=== PATIENT | male | born 1940 | race Caucasian/White ===

== ENCOUNTER 2019-07-25 09:54 | Day surgery (SDC) | payer OTHER ==
[2019-07-25 10:33] VITALS: BMI 33.0
[2019-07-25] MEDS ORDERED: LIDOCAINE HCL/PF 2% SDV 5ML VIAL ONE (11:43)
[2019-07-25 12:42] VITALS: BP 106/75; PULSE 87; TEMP 97.3
--- NOTE | 2019-07-30 16:47 | PATH ---
Surgical Pathology Report Patient Name: HELENA LAI [facility]. Rec. #: [id number] /Age/Gender: 1940 (Age: 79) / M Account: [id number] Location: [facility] Taken: 07/25/2019 Received: 07/25/2019 Reported: 07/30/2019 Physicians: Mell Mary M.D. Specimen(s) Received A: SECOND PORTION DUODENUM B: ANTRUM C: GE JUNCTION Clinical History Abdominal pain Postoperative diagnosis: Gastritis Final Diagnosis A. DUODENUM, SECOND PORTION, BIOPSY: DUODENAL MUCOSA WITHOUT SIGNIFICANT PATHOLOGIC FINDINGS. B. GASTRIC, ANTRUM, BIOPSY: GASTRIC ANTRAL MUCOSA WITH MODERATE CHRONIC GASTRITIS. IMMUNOHISTOCHEMICAL STAIN FOR H. PYLORI IS NEGATIVE. C. GE JUNCTION, BIOPSY: SQUAMOCOLUMNAR MUCOSA WITH MILD CHRONIC INFLAMMATION AND CHANGES OF MILD REFLUX ESOPHAGITIS. NO INTESTINAL METAPLASIA OR DYSPLASIA IDENTIFIED. Electronically Signed Mell Alvarez M.D. Gross Description A. Received in formalin, labeled "biopsy second portion of duodenum" are 2 ruffin, irregular portions of soft tissue measuring 0.2 and 0.4 cm. in greatest dimension. The specimens are submitted in toto in one cassette. B. Received in formalin, labeled "biopsy gastric antrum" is a ruffin, irregular portion of soft tissue measuring 0.4 cm. in greatest dimension. The specimen is submitted in toto in one cassette. C. Received in formalin, labeled "biopsy GE junction" is a ruffin, irregular portion of soft tissue measuring 0.3 cm. in greatest dimension. The specimen is submitted in toto in one cassette. 07/27/2019 [facility]07/27/2019
== END 2019-07-25 12:45 | disposition home or self-care (01) ==
LOC: FASU-ENDO 09:54
PROVIDERS: ATTEND Internal Medicine Gastroenterology
PROC: 0DB68ZX Excision of Stomach, Via Natural or Artificial Opening Endoscopic, Diagnostic (ICD-10-PCS; 2019-07-25)
PROC: 0DB48ZX Excision of Esophagogastric Junction, Via Natural or Artificial Opening Endoscopic, Diagnostic (ICD-10-PCS; 2019-07-25)
PROC: 0DB98ZX Excision of Duodenum, Via Natural or Artificial Opening Endoscopic, Diagnostic (ICD-10-PCS; principal; 2019-07-25 11:56)
DX: K29.70 Gastritis, unspecified, without bleeding (principal); K21.9 Gastro-esophageal reflux disease without esophagitis
CPT/HCPCS: 88305-TC; 88342-TC

== ENCOUNTER 2021-08-03 11:17 | Inpatient (IN) | payer OTHER ==
[2021-08-03] MEDS ORDERED: LACTATED RINGERS SOLUTION 1000 ML INFUS.BAG IV ONE (11:55)
[2021-08-03 12:37] LABS: VENOUS BASE EXCESS 3.7 mmol/L (-2-2); VENOUS O2 SATURATION 65.9 % (70-80); VENOUS PCO2 56.7 mmHg (38-52); VENOUS PH 7.356 (7.310-7.410)
[2021-08-03 12:39] LABS: BASO % 0.7 % (0-2.0); EOS % 3.8 % (0-4.5); HEMATOCRIT 38.3 % (35.4-49); HEMOGLOBIN 12.6 GM/dL (11.7-16.9); LYMPH % 12.2 % (8-40); MCH 32.6 pg (25.7-33.7); MEAN CELL VOLUME 98.7 fl (80-96); MEAN PLT VOLUME 8.3 fl (7.5-11.1); MONO % 9.8 % (3.8-10.2); NEUT % 73.5 % (42.8-82.8); PLATELET COUNT 198 10^3/uL (134-434); RBC 3.88 M/mm3 (4.00-5.60); RDW 15.3 % (11.9-15.9); WHITE BLOOD COUNT 6.5 K/mm3 (4.0-10.0)
[2021-08-03 12:46] LABS: INR 1.1 (0.83-1.09); PROTHROMBIN TIME (PATIENT) 12.9 SEC (9.7-13.0)
[2021-08-03 12:58] LABS: CHLORIDE 105 mmol/L (98-107); SODIUM 143 mmol/L (136-145)
[2021-08-03 13:00] LABS: CALCIUM 8.6 mg/dL (8.5-10.1)
[2021-08-03 13:01] LABS: ANION GAP 6 MMOL/L (8-16); CO2 32 mmol/L (21-32); GLUCOSE,RANDOM 118 mg/dL (74-106)
[2021-08-03 13:04] LABS: CREATININE 0.8 mg/dL (0.55-1.3); SGOT/AST 21 U/L (15-37); SGPT/ALT 32 U/L (13-61)
[2021-08-03 13:06] LABS: BILIRUBIN,TOTAL 0.3 mg/dL (0.2-1); TOT PROT 7.4 g/dl (6.4-8.2)
[2021-08-03 13:07] LABS: ALK PHOS 96 U/L (45-117)
[2021-08-03 13:36] LABS: LACTIC ACID 2.6 mmol/L (0.4-2.0)
[2021-08-03 14:11] LABS: URINE APPEARANCE CLEAR; URINE BILIRUBIN NEGATIVE (NEGATIVE); URINE COLOR YELLOW; URINE GLUCOSE (UA) NEGATIVE (NEGATIVE); URINE KETONE TRACE (NEGATIVE); URINE LEUK ESTERASE NEGATIVE (NEGATIVE); URINE NITRITE NEGATIVE (NEGATIVE); URINE PROTEIN TRACE (NEGATIVE); URINE UROBILINOGEN 0.2 mg/dL (0.2-1.0)
[2021-08-03] MEDS ORDERED: dilTIAZem HCL 50 MG/10 ML - 10 ML VIAL IVPUSH ONE (15:16)
[2021-08-03] MEDS ORDERED: dilTIAZem HCL 125 MG/25 ML - 25 ML VIAL ONE (15:28)
[2021-08-03] MEDS ORDERED: dilTIAZem HCL 30 MG TABLET PO ONE (15:42)
[2021-08-03] MEDS ORDERED: dilTIAZem HCL 30 MG TABLET ONE (15:53)
[2021-08-03] MEDS ORDERED: methylPREDNISolone NA SUCC 40 MG/1 ML VIAL IVPUSH ONE (17:53)
[2021-08-03] MEDS ORDERED: methylPREDNISolone NA SUCC 40 MG/1 ML VIAL ONE (19:15)
[2021-08-03] MEDS: ALBUTEROL SO4 2.5/IPRATROPIUM 0.5 INH SOL 3 ML VIAL.NEB. NEB SCH ×2 (21:00→23:30)
[2021-08-03] MEDS ORDERED: ALBUTEROL SO4 2.5/IPRATROPIUM 0.5 INH SOL 3 ML VIAL.NEB. NEB ONE (23:45)
[2021-08-04] MEDS ORDERED: levETIRAcetam 500 MG TABLET (FP) PO ONE (00:16)
[2021-08-04] MEDS ORDERED: dilTIAZem HCL 30 MG TABLET ONE (00:16)
[2021-08-04] MEDS ORDERED: ATORVASTATIN CA 10 MG TABLET (FP) ONE (00:16)
[2021-08-04] MEDS ORDERED: LACOSAMIDE 50 MG TABLET PO ONE (00:18)
[2021-08-04] MEDS: levETIRAcetam 500 MG TABLET (FP) PO SCH ×3 (00:40→21:41)
[2021-08-04] MEDS: LACOSAMIDE 50 MG TABLET PO SCH ×3 (00:40→21:41)
[2021-08-04] MEDS: dilTIAZem HCL 30 MG TABLET PO SCH ×3 (00:40→05:47)
[2021-08-04] MEDS: ATORVASTATIN CA 10 MG TABLET (FP) PO SCH ×2 (00:40→21:41)
[2021-08-04] MEDS: ALBUTEROL SO4 2.5/IPRATROPIUM 0.5 INH SOL 3 ML VIAL.NEB. NEB SCH ×2 (03:56→08:31)
[2021-08-04 06:47] LABS: BASO % 0.4 % (0-2.0); EOS % 0.1 % (0-4.5); HEMATOCRIT 36.3 % (35.4-49); HEMOGLOBIN 12.2 GM/dL (11.7-16.9); LYMPH % 8.7 % (8-40); MCH 32.9 pg (25.7-33.7); MCHC 33.6 g/dl (32.0-35.9); MEAN CELL VOLUME 97.8 fl (80-96); MEAN PLT VOLUME 8.6 fl (7.5-11.1); MONO % 7.3 % (3.8-10.2); NEUT % 83.5 % (42.8-82.8); PLATELET COUNT 168 10^3/uL (134-434); RBC 3.72 M/mm3 (4.00-5.60); WHITE BLOOD COUNT 6.2 K/mm3 (4.0-10.0)
[2021-08-04 07:01] LABS: CALCIUM 8.5 mg/dL (8.5-10.1)
[2021-08-04 07:02] LABS: ALBUMIN 2.7 g/dl (3.4-5.0); MAGNESIUM 2.2 mg/dL (1.8-2.4)
[2021-08-04 07:04] LABS: PHOSPHOROUS 3.8 mg/dL (2.5-4.9)
[2021-08-04 07:05] LABS: CREATININE 0.6 mg/dL (0.55-1.3)
[2021-08-04 07:06] LABS: BILIRUBIN,TOTAL 0.5 mg/dL (0.2-1)
[2021-08-04] MEDS: PHENobarbital 30 MG TABLET PO SCH (09:39)
[2021-08-04] MEDS: FAMOTIDINE 20 MG TABLET PO SCH (09:40)
[2021-08-04] MEDS ORDERED: TIOTROPIUM BROMIDE 2.5 MCG (SPIRIVA) RESPIMAT INHALER IH SCH (10:15)
[2021-08-04] MEDS ORDERED: methylPREDNISolone NA SUCC 40 MG/1 ML VIAL IVPUSH SCH (10:15)
[2021-08-04] MEDS ORDERED: LACTATED RINGERS SOLUTION 1,000 ML/1,000 ML INFUS.BAG IV SCH (10:15)
[2021-08-04] MEDS: LEVALBUTEROL HCL 0.63 MG/3 ML VIAL.NEB. IH SCH ×3 (10:55→19:58)
[2021-08-04] MEDS ORDERED: PT OWN MED DRAWER 7, Y5N ONE (12:49)
[2021-08-04] MEDS: FUROSEMIDE 40 MG/4 ML INJECTABLE VIAL IVPUSH SCH (13:35)
[2021-08-04] MEDS: VALSARTAN 40 MG TABLET PO SCH (13:35)
[2021-08-04] MEDS: APIXABAN 5 MG TABLET PO SCH ×2 (13:35→21:40)
[2021-08-04] MEDS: metoPROLOL SUCCINATE 25 MG TAB.SR.24H (FP) PO SCH ×2 (13:35→21:41)
[2021-08-04 17:40] LABS: ALLENS TEST POSITIVE; ARTERIAL BLD GAS O2 SATURATION 97.5 % (95-98); ARTERIAL BLOOD GAS BASE EXCESS 6.2 mmol/L (-2-2); ARTERIAL BLOOD GAS PO2 96.9 mmHg (80-100); ARTERIAL BLOOD GAS pH 7.429 (7.350-7.450)
[2021-08-04] MEDS: methylPREDNISolone NA SUCC 40 MG/1 ML VIAL IVPUSH SCH (18:09)
[2021-08-04] MEDS ORDERED: QUEtiapine FUMARATE 25 MG TABLET PO ONE (18:22)
[2021-08-04] MEDS: DOCUSATE SODIUM 100 MG CAPSULE (FP) PO SCH (21:40)
[2021-08-05] MEDS: methylPREDNISolone NA SUCC 40 MG/1 ML VIAL IVPUSH SCH ×2 (02:37→10:04)
[2021-08-05] MEDS: LEVALBUTEROL HCL 0.63 MG/3 ML VIAL.NEB. IH SCH ×3 (07:40→21:02)
[2021-08-05 08:55] LABS: HEMOGLOBIN 12.4 GM/dL (11.7-16.9); MCHC 33.6 g/dl (32.0-35.9); MEAN CELL VOLUME 98.2 fl (80-96); MEAN PLT VOLUME 8.4 fl (7.5-11.1); PLATELET COUNT 180 10^3/uL (134-434); RBC 3.77 M/mm3 (4.00-5.60); RDW 14.7 % (11.9-15.9); WHITE BLOOD COUNT 6.4 K/mm3 (4.0-10.0)
[2021-08-05 09:22] LABS: CALCIUM 8.8 mg/dL (8.5-10.1)
[2021-08-05 09:23] LABS: ALBUMIN 2.7 g/dl (3.4-5.0); MAGNESIUM 2.3 mg/dL (1.8-2.4)
[2021-08-05 09:25] LABS: CREATININE 0.6 mg/dL (0.55-1.3); PHOSPHOROUS 3.8 mg/dL (2.5-4.9)
[2021-08-05 09:27] LABS: BILIRUBIN,TOTAL 0.6 mg/dL (0.2-1)
[2021-08-05] MEDS: PHENobarbital 30 MG TABLET PO SCH (10:05)
[2021-08-05] MEDS: levETIRAcetam 500 MG TABLET (FP) PO SCH ×2 (10:05→21:35)
[2021-08-05] MEDS: VALSARTAN 40 MG TABLET PO SCH (10:05)
[2021-08-05] MEDS: metoPROLOL SUCCINATE 25 MG TAB.SR.24H (FP) PO SCH ×2 (10:05→21:35)
[2021-08-05] MEDS: FUROSEMIDE 40 MG/4 ML INJECTABLE VIAL IVPUSH SCH (10:05)
[2021-08-05] MEDS: LACOSAMIDE 50 MG TABLET PO SCH ×2 (10:05→21:35)
[2021-08-05] MEDS: FAMOTIDINE 20 MG TABLET PO SCH (10:05)
[2021-08-05] MEDS: APIXABAN 5 MG TABLET PO SCH (10:38)
[2021-08-05] MEDS: DOCUSATE SODIUM 100 MG CAPSULE (FP) PO SCH (21:35)
[2021-08-05] MEDS: ATORVASTATIN CA 10 MG TABLET (FP) PO SCH (21:35)
[2021-08-06 06:55] LABS: BASO % 0.4 % (0-2.0); EOS % 0.6 % (0-4.5); HEMOGLOBIN 12.2 GM/dL (11.7-16.9); LYMPH % 18.5 % (8-40); MCH 32.8 pg (25.7-33.7); MEAN CELL VOLUME 99.5 fl (80-96); MEAN PLT VOLUME 8.6 fl (7.5-11.1); MONO % 10.3 % (3.8-10.2); NEUT % 70.2 % (42.8-82.8); PLATELET COUNT 175 10^3/uL (134-434); RBC 3.72 M/mm3 (4.00-5.60); RDW 14.6 % (11.9-15.9); WHITE BLOOD COUNT 6.8 K/mm3 (4.0-10.0)
[2021-08-06 07:16] LABS: CALCIUM 8.4 mg/dL (8.5-10.1)
[2021-08-06 07:17] LABS: ALBUMIN 2.8 g/dl (3.4-5.0); BLOOD UREA NITROGEN 36.3 mg/dL (7-18); MAGNESIUM 2.2 mg/dL (1.8-2.4)
[2021-08-06 07:20] LABS: CREATININE 0.8 mg/dL (0.55-1.3); PHOSPHOROUS 3.4 mg/dL (2.5-4.9)
[2021-08-06 07:21] LABS: TOT PROT 6.8 g/dl (6.4-8.2)
[2021-08-06 07:22] LABS: BILIRUBIN,TOTAL 0.6 mg/dL (0.2-1)
[2021-08-06] MEDS: LEVALBUTEROL HCL 0.63 MG/3 ML VIAL.NEB. IH SCH ×3 (08:32→20:35)
[2021-08-06] MEDS: VALSARTAN 40 MG TABLET PO SCH ×2 (08:43→11:05)
[2021-08-06] MEDS: metoPROLOL SUCCINATE 25 MG TAB.SR.24H (FP) PO SCH ×3 (08:43→21:33)
[2021-08-06] MEDS: LACOSAMIDE 50 MG TABLET PO SCH ×3 (08:43→21:32)
[2021-08-06] MEDS: PHENobarbital 30 MG TABLET PO SCH ×2 (08:43→11:06)
[2021-08-06] MEDS: FUROSEMIDE 40 MG/4 ML INJECTABLE VIAL IVPUSH SCH ×2 (08:44→11:05)
[2021-08-06] MEDS: FAMOTIDINE 20 MG TABLET PO SCH ×2 (08:44→11:06)
[2021-08-06] MEDS: levETIRAcetam 500 MG TABLET (FP) PO SCH ×3 (08:44→21:33)
[2021-08-06] MEDS ORDERED: VANCOMYCIN 1 GM in D5W (PRE-DOCKED) 1,000 MG/250 ML IVPB ONE (11:00)
[2021-08-06] MEDS ORDERED: MIDAZOLAM HCL 2 MG/2 ML SINGLE DOSE VIAL ONE (11:09)
[2021-08-06] MEDS ORDERED: LIDOCAINE HCL 1%, 10 MG/ML (20ML VIAL) ONE (11:12)
[2021-08-06] MEDS ORDERED: BUPIVACAINE HCL/PF 0.25% (2.5MG/ML) 10 ML VIAL ONE (11:13)
[2021-08-06] MEDS ORDERED: VANCOMYCIN 1,000 MG VIAL (RESTRICTED TO ID ONLY) ONE ×2 (12:04→12:06)
[2021-08-06] MEDS ORDERED: VANCOMYCIN 1,000 MG VIAL (RESTRICTED TO ID ONLY) IVPB ONE (12:05)
[2021-08-06] MEDS ORDERED: LIDOCAINE HCL 1%, 10 MG/ML (20ML VIAL) INF ONE ×2 (12:20)
[2021-08-06] MEDS ORDERED: BUPIVACAINE HCL/PF 0.25% (2.5MG/ML) 10 ML VIAL IJ ONE ×2 (12:35)
[2021-08-06] MEDS ORDERED: POTASSIUM CHLORIDE TABS 20 MEQ TABLET.ER (FP) PO ONE ×2 (12:45→13:12)
[2021-08-06] MEDS ORDERED: KCL 10 MEQ IVPB 10 MEQ/100 ML INFUS.BAG IVPB SCH ×2 (12:45→13:45)
[2021-08-06] MEDS ORDERED: FLU VACC QS2021-22(6MOS UP)/PF 60 MCG/0.5 ML SYRINGE IM ONE (13:00)
[2021-08-06] MEDS ORDERED: ONDANSETRON 4 MG/2 ML VIAL IVPUSH PRN (13:02)
[2021-08-06] MEDS ORDERED: SODIUM CHLORIDE 1,000 ML IV SCH (13:15)
[2021-08-06] MEDS: DOCUSATE SODIUM 100 MG CAPSULE (FP) PO SCH (21:32)
[2021-08-06] MEDS: ATORVASTATIN CA 10 MG TABLET (FP) PO SCH (21:33)
[2021-08-07 08:34] LABS: HEMATOCRIT 37.5 % (35.4-49); HEMOGLOBIN 12.6 GM/dL (11.7-16.9); MCH 32.7 pg (25.7-33.7); MCHC 33.5 g/dl (32.0-35.9); MEAN CELL VOLUME 97.8 fl (80-96); MEAN PLT VOLUME 8.8 fl (7.5-11.1); PLATELET COUNT 173 10^3/uL (134-434); RBC 3.84 M/mm3 (4.00-5.60); RDW 14.6 % (11.9-15.9); WHITE BLOOD COUNT 5.6 K/mm3 (4.0-10.0)
[2021-08-07] MEDS: LEVALBUTEROL HCL 0.63 MG/3 ML VIAL.NEB. IH SCH ×3 (08:37→19:39)
[2021-08-07] MEDS ORDERED: FUROSEMIDE 40 MG/4 ML INJECTABLE VIAL IVPUSH SCH (10:00)
[2021-08-07] MEDS: metoPROLOL SUCCINATE 25 MG TAB.SR.24H (FP) PO SCH ×2 (10:22→21:12)
[2021-08-07] MEDS: FAMOTIDINE 20 MG TABLET PO SCH (10:23)
[2021-08-07] MEDS: PHENobarbital 30 MG TABLET PO SCH (10:23)
[2021-08-07] MEDS: LACOSAMIDE 50 MG TABLET PO SCH ×2 (10:23→21:13)
[2021-08-07] MEDS: levETIRAcetam 500 MG TABLET (FP) PO SCH ×2 (10:23→21:13)
[2021-08-07] MEDS: VALSARTAN 40 MG TABLET PO SCH (10:23)
[2021-08-07] MEDS: APIXABAN 5 MG TABLET PO SCH ×2 (10:23→21:12)
[2021-08-07] MEDS: FUROSEMIDE 40 MG TABLET (FP) PO SCH (10:23)
[2021-08-07 12:46] LABS: ALBUMIN 2.7 g/dl (3.4-5.0); BILIRUBIN,TOTAL 0.5 mg/dL (0.2-1); CALCIUM 8.7 mg/dL (8.5-10.1); CREATININE 0.6 mg/dL (0.55-1.3); MAGNESIUM 2.4 mg/dL (1.8-2.4); PHOSPHOROUS 3.4 mg/dL (2.5-4.9); TOT PROT 6.6 g/dl (6.4-8.2)
[2021-08-07] MEDS: DOCUSATE SODIUM 100 MG CAPSULE (FP) PO SCH (21:12)
[2021-08-07] MEDS: ATORVASTATIN CA 10 MG TABLET (FP) PO SCH (21:13)
[2021-08-08] MEDS: LEVALBUTEROL HCL 0.63 MG/3 ML VIAL.NEB. IH SCH ×3 (07:20→19:40)
[2021-08-08 10:15] VITALS: BMI 29.0
[2021-08-08] MEDS: PHENobarbital 30 MG TABLET PO SCH (10:18)
[2021-08-08] MEDS: VALSARTAN 40 MG TABLET PO SCH (10:18)
[2021-08-08] MEDS: APIXABAN 5 MG TABLET PO SCH ×2 (10:19→21:05)
[2021-08-08] MEDS: FUROSEMIDE 40 MG TABLET (FP) PO SCH (10:19)
[2021-08-08] MEDS: FAMOTIDINE 20 MG TABLET PO SCH (10:19)
[2021-08-08] MEDS: metoPROLOL SUCCINATE 25 MG TAB.SR.24H (FP) PO SCH ×2 (10:19→21:05)
[2021-08-08] MEDS: levETIRAcetam 500 MG TABLET (FP) PO SCH ×2 (10:19→21:05)
[2021-08-08] MEDS: LACOSAMIDE 200 MG TABLET PO SCH ×2 (12:21→21:05)
[2021-08-08] MEDS: DOCUSATE SODIUM 100 MG CAPSULE (FP) PO SCH (21:05)
[2021-08-08] MEDS: ATORVASTATIN CA 10 MG TABLET (FP) PO SCH (21:05)
[2021-08-09] MEDS: LEVALBUTEROL HCL 0.63 MG/3 ML VIAL.NEB. IH SCH ×2 (08:45→15:39)
[2021-08-09] MEDS: levETIRAcetam 500 MG TABLET (FP) PO SCH (10:00)
[2021-08-09] MEDS: FAMOTIDINE 20 MG TABLET PO SCH (10:00)
[2021-08-09] MEDS: FUROSEMIDE 40 MG TABLET (FP) PO SCH (10:00)
[2021-08-09] MEDS: PHENobarbital 30 MG TABLET PO SCH (10:00)
[2021-08-09] MEDS: metoPROLOL SUCCINATE 25 MG TAB.SR.24H (FP) PO SCH (10:00)
[2021-08-09] MEDS: LACOSAMIDE 200 MG TABLET PO SCH (10:00)
[2021-08-09] MEDS: VALSARTAN 40 MG TABLET PO SCH (10:00)
[2021-08-09] MEDS: APIXABAN 5 MG TABLET PO SCH (10:00)
[2021-08-09 10:52] VITALS: PULSE 94
[2021-08-09 14:41] VITALS: BP 118/75; TEMP 97.7
== END 2021-08-09 15:55 | DRG 176 ==
LOC: JER 11:17 → JERBED 15:51 → J4W 08-04 02:15 → J4S 08-06 22:48
PROVIDERS: ADMIT Internal Medicine; ATTEND Internal Medicine
PROC: 0JH606Z Insertion of Pacemaker, Dual Chamber into Chest Subcutaneous Tissue and Fascia, Open Approach (ICD-10-PCS; 2021-08-06)
PROC: 0JPT0PZ Removal of Cardiac Rhythm Related Device from Trunk Subcutaneous Tissue and Fascia, Open Approach (ICD-10-PCS; principal; 2021-08-06 13:30)
DX: I11.0 Hypertensive heart disease with heart failure (principal); J96.01 Acute respiratory failure with hypoxia; J96.02 Acute respiratory failure with hypercapnia; I25.10 Atherosclerotic heart disease of native coronary artery without angina pectoris; I50.33 Acute on chronic diastolic (congestive) heart failure; F03.90 Unspecified dementia, unspecified severity, without behavioral disturbance, psychotic disturbance, mood disturbance, and anxiety; K59.00 Constipation, unspecified; K21.9 Gastro-esophageal reflux disease without esophagitis; I48.19 Other persistent atrial fibrillation; F41.9 Anxiety disorder, unspecified; E78.5 Hyperlipidemia, unspecified; G40.909 Epilepsy, unspecified, not intractable, without status epilepticus; E87.6 Hypokalemia; I48.92 Unspecified atrial flutter; F25.9 Schizoaffective disorder, unspecified; J98.11 Atelectasis; E87.2 Acidosis; I25.119 Atherosclerotic heart disease of native coronary artery with unspecified angina pectoris; R00.0 Tachycardia, unspecified; J98.01 Acute bronchospasm; Z45.010 Encounter for checking and testing of cardiac pacemaker pulse generator [battery]
CPT/HCPCS: 36415; 36600; 70450-TC; 71045-TC-FY; 71275-TC; 80053; 80177; 81003; 82803; 82962; 83605; 83735; 83880; 84100; 84439; 84443; 84481; 84484; 85025; 85027; 85610; 85730; 86850; 86900; 86901; 87040; 87086; 87804; 88300-TC; 90686; 93005; 93010; 93306-TC; 94640; 94760; 94761; 97162-GP; 99291; C9803; G0008; G0480; Q9967; U0003; U0005

== ENCOUNTER 2021-08-11 18:50 | Inpatient (IN) | payer OTHER ==
[2021-08-11 20:47] LABS: BASO % 0.6 % (0-2.0); EOS % 6.5 % (0-4.5); HEMATOCRIT 39.1 % (35.4-49); HEMOGLOBIN 12.9 GM/dL (11.7-16.9); LYMPH % 21.8 % (8-40); MCH 32.6 pg (25.7-33.7); MEAN CELL VOLUME 98.6 fl (80-96); MEAN PLT VOLUME 8.9 fl (7.5-11.1); MONO % 11.8 % (3.8-10.2); NEUT % 59.3 % (42.8-82.8); PLATELET COUNT 198 10^3/uL (134-434); RBC 3.96 M/mm3 (4.00-5.60); RDW 15.3 % (11.9-15.9); WHITE BLOOD COUNT 6.7 K/mm3 (4.0-10.0)
[2021-08-11 21:00] LABS: INR 1.13 (0.83-1.09); PROTHROMBIN TIME (PATIENT) 13.2 SEC (9.7-13.0)
[2021-08-11 21:03] LABS: ACTIVATED PTT 32.1 SECONDS (25.2-36.5)
[2021-08-11 21:06] LABS: CHLORIDE 108 mmol/L (98-107); SODIUM 148 mmol/L (136-145)
[2021-08-11 21:08] LABS: CALCIUM 8.9 mg/dL (8.5-10.1)
[2021-08-11 21:09] LABS: ALBUMIN 2.9 g/dl (3.4-5.0); ANION GAP 9 MMOL/L (8-16); BLOOD UREA NITROGEN 35.9 mg/dL (7-18); CO2 31 mmol/L (21-32); GLUCOSE,RANDOM 92 mg/dL (74-106)
[2021-08-11 21:12] LABS: CREATININE 1.4 mg/dL (0.55-1.3); SGOT/AST 22 U/L (15-37); SGPT/ALT 48 U/L (13-61)
[2021-08-11 21:13] LABS: BILIRUBIN,TOTAL 0.2 mg/dL (0.2-1)
[2021-08-11 21:15] LABS: ALK PHOS 108 U/L (45-117)
[2021-08-11] MEDS ORDERED: DEXAMETHASONE SOD PHOSPHATE 10 MG/1 ML VIAL IVPUSH ONE (21:15)
[2021-08-11 21:17] LABS: N-TERMINAL BNP 318.4 pg/ml (5-450)
[2021-08-11] MEDS ORDERED: ALBUTEROL SO4 2.5/IPRATROPIUM 0.5 INH SOL 3 ML VIAL.NEB. NEB ONE (21:19)
[2021-08-11] MEDS ORDERED: DEXAMETHASONE SOD PHOSPHATE 10 MG/1 ML VIAL ONE (21:19)
[2021-08-11 21:38] LABS: LACTIC ACID 4.5 mmol/L (0.4-2.0)
[2021-08-11] MEDS ORDERED: SODIUM CHLORIDE 0.9% 500 ML INFUS.BAG IV ONE (21:38)
[2021-08-11] MEDS: ALBUTEROL SO4 2.5/IPRATROPIUM 0.5 INH SOL 3 ML VIAL.NEB. NEB SCH ×3 (21:42→22:07)
[2021-08-11] MEDS ORDERED: PIPERACILLIN/TAZOB 2.25 GM 2.25 GM in DEXTROSE 5%-WATER - 50 ML IVPB ONE (22:05)
[2021-08-11] MEDS ORDERED: PIPERACILLIN/TAZOB 2.25 GM 2.25 GM/50 ML BAG IVPB ONE (22:26)
[2021-08-11 22:33] LABS: EPI CELLS 18 /uL (0-25.1); HYALINE CASTS 3 /uL (0-3.1); URINE APPEARANCE CLEAR; URINE BACTERIA 18 /uL (0-1359); URINE BILIRUBIN NEGATIVE (NEGATIVE); URINE COLOR YELLOW; URINE GLUCOSE (UA) NEGATIVE (NEGATIVE); URINE KETONE NEGATIVE (NEGATIVE); URINE LEUK ESTERASE TRACE (NEGATIVE); URINE NITRITE NEGATIVE (NEGATIVE); URINE PROTEIN NEGATIVE (NEGATIVE); URINE RBC 13 /uL (0-23.9); URINE UROBILINOGEN 0.2 mg/dL (0.2-1.0); URINE WBC 26 /uL (0-25.8)
[2021-08-11] MEDS ORDERED: METOPROLOL TARTRATE 5 MG/5 ML VIAL IVPUSH ONE (23:13)
[2021-08-11] MEDS ORDERED: SODIUM CHLORIDE 0.45% 1,000 ML IV SCH (23:15)
[2021-08-11] MEDS ORDERED: ALBUTEROL SO4 2.5/IPRATROPIUM 0.5 INH SOL 3 ML VIAL.NEB. NEB PRN (23:20)
[2021-08-11] MEDS ORDERED: METOPROLOL TARTRATE 25 MG TABLET (FP) ONE (23:26)
[2021-08-11] MEDS: METOPROLOL TARTRATE 25 MG TABLET (FP) PO SCH (23:29)
[2021-08-12] MEDS ORDERED: HEPARIN NA (PORCINE) 5,000 UNITS/ML 1ML VIAL SQ SCH (02:00)
[2021-08-12] MEDS ORDERED: methylPREDNISolone NA SUCC 40 MG/1 ML VIAL ONE ×3 (03:04→20:01)
[2021-08-12] MEDS: methylPREDNISolone NA SUCC 40 MG/1 ML VIAL IVPUSH SCH ×3 (03:11→20:47)
[2021-08-12 06:45] LABS: BASO % 0.2 % (0-2.0); EOS % 0.1 % (0-4.5); HEMATOCRIT 40.8 % (35.4-49); HEMOGLOBIN 13.7 GM/dL (11.7-16.9); LYMPH % 8.6 % (8-40); MCH 33.4 pg (25.7-33.7); MCHC 33.6 g/dl (32.0-35.9); MEAN CELL VOLUME 99.3 fl (80-96); MEAN PLT VOLUME 8.8 fl (7.5-11.1); MONO % 2.2 % (3.8-10.2); NEUT % 88.9 % (42.8-82.8); PLATELET COUNT 198 10^3/uL (134-434); RBC 4.11 M/mm3 (4.00-5.60); RDW 15.4 % (11.9-15.9); WHITE BLOOD COUNT 6.3 K/mm3 (4.0-10.0)
[2021-08-12 07:03] LABS: BLOOD UREA NITROGEN 32.5 mg/dL (7-18); CALCIUM 8.7 mg/dL (8.5-10.1)
[2021-08-12 07:04] LABS: ALBUMIN 3.1 g/dl (3.4-5.0)
[2021-08-12 07:07] LABS: CREATININE 1.1 mg/dL (0.55-1.3)
[2021-08-12 07:08] LABS: BILIRUBIN,TOTAL 0.4 mg/dL (0.2-1); TOT PROT 7.8 g/dl (6.4-8.2)
[2021-08-12] MEDS ORDERED: METOPROLOL TARTRATE 5 MG/5 ML VIAL IVPUSH ONE (07:15)
[2021-08-12 07:19] LABS: LACTIC ACID 2.2 mmol/L (0.4-2.0)
[2021-08-12] MEDS ORDERED: METOPROLOL TARTRATE 5 MG/5 ML VIAL ONE (08:21)
[2021-08-12] MEDS ORDERED: APIXABAN 5 MG TABLET ONE ×2 (09:58→14:49)
[2021-08-12] MEDS ORDERED: FAMOTIDINE 20 MG TABLET ONE (09:58)
[2021-08-12] MEDS ORDERED: POLYETHYLENE GLYCOL (HEALTHYLAX) 3350 17 GM PACKET ONE (09:58)
[2021-08-12] MEDS ORDERED: CEFTRIAXONE 1 GM/50 ML BAG ONE (09:59)
[2021-08-12] MEDS ORDERED: levETIRAcetam 500 MG TABLET (FP) PO ONE (09:59)
[2021-08-12] MEDS ORDERED: PT OWN MED DRAWER 7, Y5N ONE (10:09)
[2021-08-12] MEDS: METOPROLOL TARTRATE 25 MG TABLET (FP) PO SCH (10:11)
[2021-08-12] MEDS: levETIRAcetam 500 MG TABLET (FP) PO SCH ×2 (10:42→15:01)
[2021-08-12] MEDS: FAMOTIDINE 20 MG TABLET PO SCH ×2 (10:42→15:00)
[2021-08-12] MEDS: CEFTRIAXONE 1 GM in DEXTROSE 5%-WATER - 50 ML IVPB SCH (10:42)
[2021-08-12] MEDS: POLYETHYLENE GLYCOL (HEALTHYLAX) 3350 17 GM PACKET PO SCH (10:42)
[2021-08-12] MEDS: APIXABAN 5 MG TABLET PO SCH ×2 (10:42→15:00)
[2021-08-12] MEDS: LACOSAMIDE 200 MG TABLET PO SCH ×2 (10:44→15:00)
[2021-08-12] MEDS: SODIUM CHLORIDE 1,000 ML IV SCH (11:18)
[2021-08-12] MEDS ORDERED: METOPROLOL TARTRATE 5 MG/5 ML VIAL IVPUSH PRN ×2 (15:50→16:24)
[2021-08-12] MEDS ORDERED: PATIENT'S OWN MEDICATION (NON-FORMULARY) (Simvastatin 10 MG Tablet) PO SCH (22:00)
[2021-08-13] MEDS ORDERED: LACOSAMIDE 50 MG TABLET PO ONE (02:14)
[2021-08-13] MEDS ORDERED: PHENobarbital 30 MG TABLET ONE (02:15)
[2021-08-13] MEDS ORDERED: APIXABAN 5 MG TABLET ONE ×2 (02:15→09:21)
[2021-08-13] MEDS ORDERED: METOPROLOL TARTRATE 25 MG TABLET (FP) ONE ×2 (02:15→09:21)
[2021-08-13] MEDS ORDERED: SENNOSIDES 8.6MG TABLET (FP) PO ONE (02:16)
[2021-08-13] MEDS ORDERED: methylPREDNISolone NA SUCC 40 MG/1 ML VIAL ONE ×2 (02:16→09:23)
[2021-08-13] MEDS ORDERED: ATORVASTATIN CA 10 MG TABLET (FP) ONE (02:16)
[2021-08-13] MEDS ORDERED: DOCUSATE SODIUM 100 MG CAPSULE (FP) PO ONE (02:16)
[2021-08-13] MEDS ORDERED: levETIRAcetam 500 MG TABLET (FP) PO ONE ×2 (02:16→09:22)
[2021-08-13] MEDS: ATORVASTATIN CA 10 MG TABLET (FP) PO SCH ×2 (02:27→21:40)
[2021-08-13] MEDS: SENNOSIDES 8.6MG TABLET (FP) PO SCH ×2 (02:27→21:40)
[2021-08-13] MEDS: DOCUSATE SODIUM 100 MG CAPSULE (FP) PO SCH ×2 (02:27→21:40)
[2021-08-13] MEDS: LACOSAMIDE 200 MG TABLET PO SCH ×2 (02:27→10:30)
[2021-08-13] MEDS: levETIRAcetam 500 MG TABLET (FP) PO SCH ×3 (02:27→21:40)
[2021-08-13] MEDS: APIXABAN 5 MG TABLET PO SCH ×3 (02:27→21:40)
[2021-08-13] MEDS: METOPROLOL TARTRATE 25 MG TABLET (FP) PO SCH ×3 (02:27→21:40)
[2021-08-13] MEDS: methylPREDNISolone NA SUCC 40 MG/1 ML VIAL IVPUSH SCH ×3 (03:01→17:20)
[2021-08-13] MEDS: LATANOPROST 0.005% OPHTH SOLN 2.5ML BOTTLE OU SCH ×2 (03:01→21:41)
[2021-08-13 07:51] LABS: HEMATOCRIT 38.1 % (35.4-49); HEMOGLOBIN 12.7 GM/dL (11.7-16.9); MCH 32.7 pg (25.7-33.7); MCHC 33.4 g/dl (32.0-35.9); MEAN CELL VOLUME 98.1 fl (80-96); MEAN PLT VOLUME 8.9 fl (7.5-11.1); PLATELET COUNT 187 10^3/uL (134-434); RBC 3.88 M/mm3 (4.00-5.60); RDW 15.5 % (11.9-15.9); WHITE BLOOD COUNT 8.6 K/mm3 (4.0-10.0)
[2021-08-13 08:13] LABS: CALCIUM 9.1 mg/dL (8.5-10.1)
[2021-08-13 08:14] LABS: BLOOD UREA NITROGEN 29.4 mg/dL (7-18)
[2021-08-13 08:18] LABS: BILIRUBIN,TOTAL 0.7 mg/dL (0.2-1)
[2021-08-13 08:20] LABS: CREATININE 0.7 mg/dL (0.55-1.3)
[2021-08-13 08:21] LABS: TOT PROT 7.2 g/dl (6.4-8.2)
[2021-08-13] MEDS ORDERED: FAMOTIDINE 20 MG TABLET ONE (09:21)
[2021-08-13] MEDS ORDERED: POLYETHYLENE GLYCOL (HEALTHYLAX) 3350 17 GM PACKET ONE (09:21)
[2021-08-13] MEDS ORDERED: VALSARTAN 80 MG TABLET ONE (09:22)
[2021-08-13] MEDS ORDERED: CEFTRIAXONE 1 GM/50 ML BAG ONE (09:22)
[2021-08-13] MEDS: VALSARTAN 40 MG TABLET PO SCH (09:46)
[2021-08-13] MEDS: CEFTRIAXONE 1 GM in DEXTROSE 5%-WATER - 50 ML IVPB SCH (09:47)
[2021-08-13] MEDS: FAMOTIDINE 20 MG TABLET PO SCH (09:47)
[2021-08-13] MEDS: POLYETHYLENE GLYCOL (HEALTHYLAX) 3350 17 GM PACKET PO SCH (09:47)
[2021-08-13] MEDS: CALCIUM 500MG/VIT-D 200 UNITS COMBO TABLET (FP) PO SCH (10:30)
[2021-08-13] MEDS: SODIUM CHLORIDE 1,000 ML IV SCH (10:45)
[2021-08-13] MEDS ORDERED: FUROSEMIDE 40 MG/4 ML INJECTABLE VIAL IVPUSH ONE (14:32)
[2021-08-13] MEDS ORDERED: CEFTRIAXONE 1,000 MG in DEXTROSE 5%-WATER - 50 ML IVPB ONE (14:50)
[2021-08-13] MEDS ORDERED: FUROSEMIDE 40 MG/4 ML INJECTABLE VIAL ONE (15:15)
[2021-08-13 16:43] VITALS: BMI 28.3
[2021-08-13] MEDS ORDERED: PHENobarbital 30 MG TABLET PO SCH (21:59)
[2021-08-13] MEDS ORDERED: LACOSAMIDE 50 MG TABLET PO SCH (22:01)
[2021-08-13] MEDS: PHENobarbital 30 MG TABLET PO SCH (22:06)
[2021-08-13] MEDS: LACOSAMIDE 50 MG TABLET PO SCH (22:32)
[2021-08-14] MEDS: methylPREDNISolone NA SUCC 40 MG/1 ML VIAL IVPUSH SCH ×3 (01:42→17:27)
[2021-08-14] MEDS: FUROSEMIDE 40 MG/4 ML INJECTABLE VIAL IVPUSH SCH ×2 (06:07→14:45)
[2021-08-14] MEDS: METOPROLOL TARTRATE 25 MG TABLET (FP) PO SCH ×2 (09:29→22:17)
[2021-08-14] MEDS: TAMSULOSIN HCL 0.4 MG CAP PO SCH (09:29)
[2021-08-14] MEDS: APIXABAN 5 MG TABLET PO SCH ×2 (09:29→22:17)
[2021-08-14] MEDS: levETIRAcetam 500 MG TABLET (FP) PO SCH ×2 (09:29→22:17)
[2021-08-14] MEDS: CALCIUM 500MG/VIT-D 200 UNITS COMBO TABLET (FP) PO SCH (09:29)
[2021-08-14] MEDS: FAMOTIDINE 20 MG TABLET PO SCH (09:29)
[2021-08-14] MEDS: POLYETHYLENE GLYCOL (HEALTHYLAX) 3350 17 GM PACKET PO SCH (09:30)
[2021-08-14] MEDS: LACOSAMIDE 50 MG TABLET PO SCH ×2 (09:30→22:16)
[2021-08-14] MEDS ORDERED: PT OWN MED DRAWER 7, Y5N ONE (09:32)
[2021-08-14] MEDS: VALSARTAN 40 MG TABLET PO SCH (09:33)
[2021-08-14 12:50] LABS: HEMOGLOBIN 12.5 GM/dL (11.7-16.9); MCH 33.1 pg (25.7-33.7); MCHC 33.8 g/dl (32.0-35.9); MEAN CELL VOLUME 97.8 fl (80-96); MEAN PLT VOLUME 8.7 fl (7.5-11.1); PLATELET COUNT 192 10^3/uL (134-434); RBC 3.79 M/mm3 (4.00-5.60); RDW 14.9 % (11.9-15.9); WHITE BLOOD COUNT 6.9 K/mm3 (4.0-10.0)
[2021-08-14 13:18] LABS: CALCIUM 8.5 mg/dL (8.5-10.1)
[2021-08-14 13:19] LABS: MAGNESIUM 2.2 mg/dL (1.8-2.4)
[2021-08-14 13:20] LABS: BLOOD UREA NITROGEN 23.7 mg/dL (7-18)
[2021-08-14 13:21] LABS: CREATININE 0.7 mg/dL (0.55-1.3); PHOSPHOROUS 2.7 mg/dL (2.5-4.9)
[2021-08-14 13:22] LABS: TOT PROT 7.2 g/dl (6.4-8.2)
[2021-08-14 13:23] LABS: BILIRUBIN,TOTAL 0.3 mg/dL (0.2-1)
[2021-08-14] MEDS: DOCUSATE SODIUM 100 MG CAPSULE (FP) PO SCH (22:16)
[2021-08-14] MEDS: PHENobarbital 30 MG TABLET PO SCH (22:17)
[2021-08-14] MEDS: SENNOSIDES 8.6MG TABLET (FP) PO SCH (22:17)
[2021-08-14] MEDS: LATANOPROST 0.005% OPHTH SOLN 2.5ML BOTTLE OU SCH (22:17)
[2021-08-14] MEDS: ATORVASTATIN CA 10 MG TABLET (FP) PO SCH (22:17)
[2021-08-15] MEDS: methylPREDNISolone NA SUCC 40 MG/1 ML VIAL IVPUSH SCH ×2 (01:09→09:10)
[2021-08-15] MEDS: FUROSEMIDE 40 MG/4 ML INJECTABLE VIAL IVPUSH SCH ×2 (05:22→13:59)
[2021-08-15] MEDS ORDERED: PT OWN MED DRAWER 7, Y5N ONE (09:08)
[2021-08-15] MEDS: levETIRAcetam 500 MG TABLET (FP) PO SCH ×2 (09:10→21:20)
[2021-08-15] MEDS: LACOSAMIDE 50 MG TABLET PO SCH ×2 (09:10→21:21)
[2021-08-15] MEDS: VALSARTAN 40 MG TABLET PO SCH (09:10)
[2021-08-15] MEDS: CALCIUM 500MG/VIT-D 200 UNITS COMBO TABLET (FP) PO SCH (09:11)
[2021-08-15] MEDS: TAMSULOSIN HCL 0.4 MG CAP PO SCH (09:11)
[2021-08-15] MEDS: POLYETHYLENE GLYCOL (HEALTHYLAX) 3350 17 GM PACKET PO SCH (09:11)
[2021-08-15] MEDS: APIXABAN 5 MG TABLET PO SCH ×2 (09:11→21:20)
[2021-08-15] MEDS: FAMOTIDINE 20 MG TABLET PO SCH (09:11)
[2021-08-15] MEDS: METOPROLOL TARTRATE 25 MG TABLET (FP) PO SCH ×2 (09:11→21:20)
[2021-08-15 10:29] LABS: HEMATOCRIT 37.3 % (35.4-49); HEMOGLOBIN 12.7 GM/dL (11.7-16.9); MCH 33.4 pg (25.7-33.7); MCHC 34.1 g/dl (32.0-35.9); PLATELET COUNT 190 10^3/uL (134-434); RBC 3.81 M/mm3 (4.00-5.60); RDW 14.9 % (11.9-15.9)
[2021-08-15 11:08] LABS: ALBUMIN 2.8 g/dl (3.4-5.0); CALCIUM 8.6 mg/dL (8.5-10.1)
[2021-08-15 11:09] LABS: BLOOD UREA NITROGEN 26.6 mg/dL (7-18); MAGNESIUM 2.1 mg/dL (1.8-2.4)
[2021-08-15 11:12] LABS: CREATININE 0.8 mg/dL (0.55-1.3); PHOSPHOROUS 3.4 mg/dL (2.5-4.9)
[2021-08-15 11:13] LABS: BILIRUBIN,TOTAL 0.5 mg/dL (0.2-1)
[2021-08-15] MEDS ORDERED: ALBUTEROL SO4 2.5/IPRATROPIUM 0.5 INH SOL 3 ML VIAL.NEB. NEB PRN (19:15)
[2021-08-15] MEDS ORDERED: METOPROLOL TARTRATE 5 MG/5 ML VIAL IVPUSH PRN (19:15)
[2021-08-15] MEDS: LACOSAMIDE 200 MG TABLET PO SCH (20:49)
[2021-08-15] MEDS: PHENobarbital 30 MG TABLET PO SCH (21:20)
[2021-08-15] MEDS: SENNOSIDES 8.6MG TABLET (FP) PO SCH (21:20)
[2021-08-15] MEDS: ATORVASTATIN CA 10 MG TABLET (FP) PO SCH (21:20)
[2021-08-15] MEDS: LATANOPROST 0.005% OPHTH SOLN 2.5ML BOTTLE OU SCH (21:21)
[2021-08-15] MEDS: DOCUSATE SODIUM 100 MG CAPSULE (FP) PO SCH (21:28)
[2021-08-16] MEDS: FUROSEMIDE 40 MG/4 ML INJECTABLE VIAL IVPUSH SCH ×2 (05:31→15:52)
[2021-08-16] MEDS ORDERED: PT OWN MED DRAWER 7, Y5N ONE (10:25)
[2021-08-16] MEDS: POLYETHYLENE GLYCOL (HEALTHYLAX) 3350 17 GM PACKET PO SCH (10:27)
[2021-08-16] MEDS: FAMOTIDINE 20 MG TABLET PO SCH (10:28)
[2021-08-16] MEDS: LACOSAMIDE 50 MG TABLET PO SCH ×2 (10:28→21:11)
[2021-08-16] MEDS: CALCIUM 500MG/VIT-D 200 UNITS COMBO TABLET (FP) PO SCH (10:29)
[2021-08-16] MEDS: VALSARTAN 40 MG TABLET PO SCH (10:30)
[2021-08-16] MEDS: APIXABAN 5 MG TABLET PO SCH ×2 (10:30→21:09)
[2021-08-16] MEDS: levETIRAcetam 500 MG TABLET (FP) PO SCH ×2 (10:30→21:10)
[2021-08-16] MEDS: TAMSULOSIN HCL 0.4 MG CAP PO SCH (10:30)
[2021-08-16] MEDS: METOPROLOL TARTRATE 25 MG TABLET (FP) PO SCH ×2 (10:31→21:10)
[2021-08-16 11:38] LABS: HEMATOCRIT 37.2 % (35.4-49); HEMOGLOBIN 12.9 GM/dL (11.7-16.9); MCHC 34.8 g/dl (32.0-35.9); MEAN CELL VOLUME 97.6 fl (80-96); RBC 3.81 M/mm3 (4.00-5.60); RDW 14.8 % (11.9-15.9); WHITE BLOOD COUNT 6.9 K/mm3 (4.0-10.0)
[2021-08-16 12:00] LABS: BLOOD UREA NITROGEN 25.1 mg/dL (7-18); CALCIUM 8.3 mg/dL (8.5-10.1); MAGNESIUM 2.2 mg/dL (1.8-2.4)
[2021-08-16 12:01] LABS: ALBUMIN 2.9 g/dl (3.4-5.0)
[2021-08-16 12:04] LABS: CREATININE 0.7 mg/dL (0.55-1.3); PHOSPHOROUS 3.2 mg/dL (2.5-4.9)
[2021-08-16 12:05] LABS: BILIRUBIN,TOTAL 0.8 mg/dL (0.2-1); TOT PROT 6.7 g/dl (6.4-8.2)
[2021-08-16] MEDS: ATORVASTATIN CA 10 MG TABLET (FP) PO SCH (21:09)
[2021-08-16] MEDS: SENNOSIDES 8.6MG TABLET (FP) PO SCH (21:10)
[2021-08-16] MEDS: DOCUSATE SODIUM 100 MG CAPSULE (FP) PO SCH (21:10)
[2021-08-16] MEDS: PHENobarbital 30 MG TABLET PO SCH (21:10)
[2021-08-16] MEDS: LATANOPROST 0.005% OPHTH SOLN 2.5ML BOTTLE OU SCH (21:11)
[2021-08-17] MEDS: FUROSEMIDE 40 MG/4 ML INJECTABLE VIAL IVPUSH SCH ×2 (05:39→14:29)
[2021-08-17] MEDS ORDERED: PT OWN MED DRAWER 7, Y5N ONE (11:02)
[2021-08-17] MEDS: TAMSULOSIN HCL 0.4 MG CAP PO SCH (11:03)
[2021-08-17] MEDS: POLYETHYLENE GLYCOL (HEALTHYLAX) 3350 17 GM PACKET PO SCH (11:04)
[2021-08-17] MEDS: METOPROLOL TARTRATE 25 MG TABLET (FP) PO SCH ×2 (11:04→21:49)
[2021-08-17] MEDS: CALCIUM 500MG/VIT-D 200 UNITS COMBO TABLET (FP) PO SCH (11:04)
[2021-08-17] MEDS: APIXABAN 5 MG TABLET PO SCH ×2 (11:04→21:34)
[2021-08-17] MEDS: LACOSAMIDE 50 MG TABLET PO SCH ×2 (11:04→21:34)
[2021-08-17] MEDS: VALSARTAN 40 MG TABLET PO SCH (11:04)
[2021-08-17] MEDS: FAMOTIDINE 20 MG TABLET PO SCH (11:04)
[2021-08-17] MEDS: levETIRAcetam 500 MG TABLET (FP) PO SCH (11:05)
[2021-08-17 11:48] LABS: CALCIUM 8.5 mg/dL (8.5-10.1)
[2021-08-17 11:49] LABS: ALBUMIN 2.8 g/dl (3.4-5.0); BLOOD UREA NITROGEN 28.9 mg/dL (7-18); MAGNESIUM 2.2 mg/dL (1.8-2.4)
[2021-08-17 11:51] LABS: HEMATOCRIT 36.9 % (35.4-49); HEMOGLOBIN 12.6 GM/dL (11.7-16.9); MCH 33.4 pg (25.7-33.7); MCHC 34.2 g/dl (32.0-35.9); MEAN CELL VOLUME 97.6 fl (80-96); MEAN PLT VOLUME 9.2 fl (7.5-11.1); PLATELET COUNT 177 10^3/uL (134-434); RBC 3.78 M/mm3 (4.00-5.60); RDW 14.8 % (11.9-15.9); WHITE BLOOD COUNT 6.5 K/mm3 (4.0-10.0)
[2021-08-17 11:52] LABS: CREATININE 0.9 mg/dL (0.55-1.3); PHOSPHOROUS 3.3 mg/dL (2.5-4.9)
[2021-08-17 11:54] LABS: BILIRUBIN,TOTAL 0.4 mg/dL (0.2-1); TOT PROT 6.5 g/dl (6.4-8.2)
[2021-08-17 11:55] LABS: LACTIC ACID 2.1 mmol/L (0.4-2.0)
[2021-08-17] MEDS: PHENobarbital 30 MG TABLET PO SCH (21:34)
[2021-08-17] MEDS: SENNOSIDES 8.6MG TABLET (FP) PO SCH (21:34)
[2021-08-17] MEDS: ATORVASTATIN CA 10 MG TABLET (FP) PO SCH (21:34)
[2021-08-17] MEDS: levETIRAcetam 250 MG TABLET PO SCH (21:34)
[2021-08-17] MEDS: DOCUSATE SODIUM 100 MG CAPSULE (FP) PO SCH (21:35)
[2021-08-17] MEDS: LATANOPROST 0.005% OPHTH SOLN 2.5ML BOTTLE OU SCH (21:35)
[2021-08-18] MEDS: FUROSEMIDE 40 MG/4 ML INJECTABLE VIAL IVPUSH SCH ×2 (06:25→14:23)
[2021-08-18] MEDS ORDERED: VALSARTAN 40 MG TABLET PO SCH (09:04)
[2021-08-18] MEDS ORDERED: PT OWN MED DRAWER 7, Y5N ONE (09:46)
[2021-08-18] MEDS: LACOSAMIDE 50 MG TABLET PO SCH ×2 (10:25→21:29)
[2021-08-18] MEDS: TAMSULOSIN HCL 0.4 MG CAP PO SCH (10:25)
[2021-08-18] MEDS: APIXABAN 5 MG TABLET PO SCH ×2 (10:26→21:30)
[2021-08-18] MEDS: CALCIUM 500MG/VIT-D 200 UNITS COMBO TABLET (FP) PO SCH (10:26)
[2021-08-18] MEDS: levETIRAcetam 250 MG TABLET PO SCH ×2 (10:26→21:29)
[2021-08-18] MEDS: FAMOTIDINE 20 MG TABLET PO SCH (10:26)
[2021-08-18] MEDS: POLYETHYLENE GLYCOL (HEALTHYLAX) 3350 17 GM PACKET PO SCH (10:26)
[2021-08-18] MEDS: METOPROLOL TARTRATE 25 MG TABLET (FP) PO SCH ×2 (10:26→21:30)
[2021-08-18] MEDS: SENNOSIDES 8.6MG TABLET (FP) PO SCH (21:29)
[2021-08-18] MEDS: ATORVASTATIN CA 10 MG TABLET (FP) PO SCH (21:29)
[2021-08-18] MEDS: DOCUSATE SODIUM 100 MG CAPSULE (FP) PO SCH (21:29)
[2021-08-18] MEDS: LATANOPROST 0.005% OPHTH SOLN 2.5ML BOTTLE OU SCH (21:30)
[2021-08-18] MEDS: VITAMINS A AND D TOPICAL OINTMENT 60 GM TUBE TP SCH (21:30)
[2021-08-19] MEDS: FUROSEMIDE 40 MG/4 ML INJECTABLE VIAL IVPUSH SCH ×2 (05:58→13:35)
[2021-08-19] MEDS: VITAMINS A AND D TOPICAL OINTMENT 60 GM TUBE TP SCH ×3 (06:07→23:49)
[2021-08-19] MEDS ORDERED: PT OWN MED DRAWER 7, Y5N ONE (09:20)
[2021-08-19] MEDS: LACOSAMIDE 50 MG TABLET PO SCH ×2 (09:25→21:49)
[2021-08-19] MEDS: levETIRAcetam 250 MG TABLET PO SCH ×2 (09:25→21:48)
[2021-08-19] MEDS: POLYETHYLENE GLYCOL (HEALTHYLAX) 3350 17 GM PACKET PO SCH (09:25)
[2021-08-19] MEDS: METOPROLOL TARTRATE 25 MG TABLET (FP) PO SCH ×2 (09:26→21:48)
[2021-08-19] MEDS: CALCIUM 500MG/VIT-D 200 UNITS COMBO TABLET (FP) PO SCH (09:26)
[2021-08-19] MEDS: APIXABAN 5 MG TABLET PO SCH ×2 (09:27→21:48)
[2021-08-19] MEDS: MULTIVIT-MINERALS ORAL LIQUID PO SCH (09:27)
[2021-08-19] MEDS: FAMOTIDINE 20 MG TABLET PO SCH (09:27)
[2021-08-19] MEDS ORDERED: PHENobarbital 30 MG TABLET PO ONE (09:30)
[2021-08-19] MEDS ORDERED: VALSARTAN 40 MG TABLET PO SCH (10:00)
[2021-08-19 10:07] LABS: BASO % 0.6 % (0-2.0); EOS % 5.6 % (0-4.5); HEMATOCRIT 40.4 % (35.4-49); HEMOGLOBIN 13.8 GM/dL (11.7-16.9); LYMPH % 13.6 % (8-40); MCH 33.6 pg (25.7-33.7); MCHC 34.2 g/dl (32.0-35.9); MEAN CELL VOLUME 98.3 fl (80-96); MEAN PLT VOLUME 9.4 fl (7.5-11.1); MONO % 7.9 % (3.8-10.2); NEUT % 72.3 % (42.8-82.8); PLATELET COUNT 183 10^3/uL (134-434); RBC 4.11 M/mm3 (4.00-5.60); RDW 15.2 % (11.9-15.9); WHITE BLOOD COUNT 6.7 K/mm3 (4.0-10.0)
[2021-08-19 10:13] LABS: CALCIUM 9.4 mg/dL (8.5-10.1)
[2021-08-19 10:16] LABS: LACTIC ACID 2.2 mmol/L (0.4-2.0)
[2021-08-19 10:17] LABS: CREATININE 0.9 mg/dL (0.55-1.3)
[2021-08-19] MEDS ORDERED: SODIUM CHLORIDE 500 ML IV STA (11:55)
[2021-08-19] MEDS: SENNOSIDES 8.6MG TABLET (FP) PO SCH (21:48)
[2021-08-19] MEDS: DOCUSATE SODIUM 100 MG CAPSULE (FP) PO SCH (21:49)
[2021-08-19] MEDS: ATORVASTATIN CA 10 MG TABLET (FP) PO SCH (21:49)
[2021-08-19] MEDS: PHENobarbital 30 MG TABLET PO SCH (21:50)
[2021-08-19] MEDS: LATANOPROST 0.005% OPHTH SOLN 2.5ML BOTTLE OU SCH (21:50)
[2021-08-20 05:55] LABS: URINE APPEARANCE CLEAR; URINE BILIRUBIN NEGATIVE (NEGATIVE); URINE COLOR YELLOW; URINE GLUCOSE (UA) NEGATIVE (NEGATIVE); URINE KETONE TRACE (NEGATIVE); URINE LEUK ESTERASE NEGATIVE (NEGATIVE); URINE NITRITE NEGATIVE (NEGATIVE); URINE PROTEIN NEGATIVE (NEGATIVE); URINE UROBILINOGEN 0.2 mg/dL (0.2-1.0)
[2021-08-20] MEDS: VITAMINS A AND D TOPICAL OINTMENT 60 GM TUBE TP SCH ×3 (06:59→21:37)
[2021-08-20] MEDS: FAMOTIDINE 20 MG TABLET PO SCH (09:58)
[2021-08-20] MEDS: METOPROLOL TARTRATE 25 MG TABLET (FP) PO SCH ×2 (09:58→21:36)
[2021-08-20] MEDS: POLYETHYLENE GLYCOL (HEALTHYLAX) 3350 17 GM PACKET PO SCH (09:59)
[2021-08-20] MEDS: APIXABAN 5 MG TABLET PO SCH ×2 (09:59→21:36)
[2021-08-20] MEDS: LACOSAMIDE 50 MG TABLET PO SCH ×2 (09:59→21:36)
[2021-08-20] MEDS: levETIRAcetam 250 MG TABLET PO SCH ×2 (09:59→21:36)
[2021-08-20] MEDS: CALCIUM 500MG/VIT-D 200 UNITS COMBO TABLET (FP) PO SCH (09:59)
[2021-08-20] MEDS: MULTIVIT-MINERALS ORAL LIQUID PO SCH (10:00)
[2021-08-20] MEDS ORDERED: ALBUTEROL SO4 0.5 % INH SOLN 2.5 MG/0.5 ML VIAL.NEB. NEB PRN (12:49)
[2021-08-20 13:06] LABS: BASO % 1.1 % (0-2.0); EOS % 6.2 % (0-4.5); HEMATOCRIT 36.9 % (35.4-49); HEMOGLOBIN 12.4 GM/dL (11.7-16.9); LYMPH % 13.3 % (8-40); MCH 32.8 pg (25.7-33.7); MCHC 33.5 g/dl (32.0-35.9); MEAN CELL VOLUME 97.9 fl (80-96); MEAN PLT VOLUME 8.8 fl (7.5-11.1); MONO % 8.8 % (3.8-10.2); NEUT % 70.6 % (42.8-82.8); PLATELET COUNT 178 10^3/uL (134-434); RBC 3.77 M/mm3 (4.00-5.60); RDW 15.1 % (11.9-15.9); WHITE BLOOD COUNT 7.3 K/mm3 (4.0-10.0)
[2021-08-20 13:17] LABS: CALCIUM 8.9 mg/dL (8.5-10.1)
[2021-08-20 13:18] LABS: BLOOD UREA NITROGEN 29.9 mg/dL (7-18)
[2021-08-20 13:21] LABS: CREATININE 0.9 mg/dL (0.55-1.3)
[2021-08-20] MEDS: ALBUTEROL SO4 2.5/IPRATROPIUM 0.5 INH SOL 3 ML VIAL.NEB. NEB SCH ×2 (15:30→19:57)
[2021-08-20] MEDS: SENNOSIDES 8.6MG TABLET (FP) PO SCH (21:36)
[2021-08-20] MEDS: ATORVASTATIN CA 10 MG TABLET (FP) PO SCH (21:36)
[2021-08-20] MEDS: PHENobarbital 30 MG TABLET PO SCH (21:37)
[2021-08-20] MEDS: DOCUSATE SODIUM 100 MG CAPSULE (FP) PO SCH (21:37)
[2021-08-20] MEDS: LATANOPROST 0.005% OPHTH SOLN 2.5ML BOTTLE OU SCH (21:37)
[2021-08-21] MEDS: VITAMINS A AND D TOPICAL OINTMENT 60 GM TUBE TP SCH ×3 (05:33→21:28)
[2021-08-21] MEDS: ALBUTEROL SO4 2.5/IPRATROPIUM 0.5 INH SOL 3 ML VIAL.NEB. NEB SCH ×4 (07:59→19:58)
[2021-08-21 10:27] LABS: HEMATOCRIT 36.4 % (35.4-49); HEMOGLOBIN 12.1 GM/dL (11.7-16.9); MCH 32.8 pg (25.7-33.7); MCHC 33.2 g/dl (32.0-35.9); MEAN CELL VOLUME 98.7 fl (80-96); MEAN PLT VOLUME 9.1 fl (7.5-11.1); PLATELET COUNT 165 10^3/uL (134-434); RBC 3.69 M/mm3 (4.00-5.60); RDW 14.7 % (11.9-15.9); WHITE BLOOD COUNT 5.9 K/mm3 (4.0-10.0)
[2021-08-21 10:45] LABS: BLOOD UREA NITROGEN 28.3 mg/dL (7-18); CALCIUM 8.6 mg/dL (8.5-10.1)
[2021-08-21 10:48] LABS: CREATININE 0.9 mg/dL (0.55-1.3)
[2021-08-21] MEDS: POLYETHYLENE GLYCOL (HEALTHYLAX) 3350 17 GM PACKET PO SCH (10:53)
[2021-08-21] MEDS: APIXABAN 5 MG TABLET PO SCH ×2 (10:53→21:27)
[2021-08-21] MEDS: CALCIUM 500MG/VIT-D 200 UNITS COMBO TABLET (FP) PO SCH (10:53)
[2021-08-21] MEDS: METOPROLOL TARTRATE 25 MG TABLET (FP) PO SCH ×2 (10:54→21:27)
[2021-08-21] MEDS: LACOSAMIDE 50 MG TABLET PO SCH ×2 (10:54→21:27)
[2021-08-21] MEDS: FAMOTIDINE 20 MG TABLET PO SCH (10:54)
[2021-08-21] MEDS: levETIRAcetam 250 MG TABLET PO SCH ×2 (10:54→21:27)
[2021-08-21] MEDS: MULTIVIT-MINERALS ORAL LIQUID PO SCH (10:55)
[2021-08-21] MEDS ORDERED: METOPROLOL TARTRATE 5 MG/5 ML VIAL IVPUSH ONE (16:01)
[2021-08-21] MEDS: PHENobarbital 30 MG TABLET PO SCH (21:27)
[2021-08-21] MEDS: ATORVASTATIN CA 10 MG TABLET (FP) PO SCH (21:27)
[2021-08-21] MEDS: SENNOSIDES 8.6MG TABLET (FP) PO SCH (21:28)
[2021-08-21] MEDS: LATANOPROST 0.005% OPHTH SOLN 2.5ML BOTTLE OU SCH (21:28)
[2021-08-21] MEDS: DOCUSATE SODIUM 100 MG CAPSULE (FP) PO SCH (21:28)
[2021-08-22] MEDS: VITAMINS A AND D TOPICAL OINTMENT 60 GM TUBE TP SCH ×2 (05:14→21:03)
[2021-08-22] MEDS: ALBUTEROL SO4 2.5/IPRATROPIUM 0.5 INH SOL 3 ML VIAL.NEB. NEB SCH ×4 (08:20→20:10)
[2021-08-22] MEDS ORDERED: PT OWN MED DRAWER 7, Y5N ONE ×2 (10:30→20:57)
[2021-08-22] MEDS: LACOSAMIDE 50 MG TABLET PO SCH (10:31)
[2021-08-22] MEDS: MULTIVIT-MINERALS ORAL LIQUID PO SCH (10:31)
[2021-08-22] MEDS: CALCIUM 500MG/VIT-D 200 UNITS COMBO TABLET (FP) PO SCH (10:31)
[2021-08-22] MEDS: APIXABAN 5 MG TABLET PO SCH ×2 (10:32→21:02)
[2021-08-22] MEDS: POLYETHYLENE GLYCOL (HEALTHYLAX) 3350 17 GM PACKET PO SCH (10:32)
[2021-08-22] MEDS: FAMOTIDINE 20 MG TABLET PO SCH (10:32)
[2021-08-22] MEDS: levETIRAcetam 250 MG TABLET PO SCH ×2 (10:32→21:02)
[2021-08-22] MEDS: METOPROLOL TARTRATE 25 MG TABLET (FP) PO SCH ×2 (10:32→21:07)
[2021-08-22] MEDS ORDERED: ALBUTEROL SO4 0.5 % INH SOLN 2.5 MG/0.5 ML VIAL.NEB. NEB PRN (14:18)
[2021-08-22] MEDS: ATORVASTATIN CA 10 MG TABLET (FP) PO SCH (21:01)
[2021-08-22] MEDS: LACOSAMIDE 200 MG TABLET PO SCH (21:01)
[2021-08-22] MEDS: PHENobarbital 30 MG TABLET PO SCH (21:01)
[2021-08-22] MEDS: SENNOSIDES 8.6MG TABLET (FP) PO SCH (21:02)
[2021-08-22] MEDS: DOCUSATE SODIUM 100 MG CAPSULE (FP) PO SCH (21:02)
[2021-08-22] MEDS: LATANOPROST 0.005% OPHTH SOLN 2.5ML BOTTLE OU SCH (22:09)
[2021-08-23] MEDS: VITAMINS A AND D TOPICAL OINTMENT 60 GM TUBE TP SCH ×3 (05:50→21:06)
[2021-08-23 07:02] LABS: BASO % 0.8 % (0-2.0); EOS % 6.3 % (0-4.5); HEMATOCRIT 34.3 % (35.4-49); HEMOGLOBIN 11.6 GM/dL (11.7-16.9); LYMPH % 18.7 % (8-40); MCH 33.2 pg (25.7-33.7); MCHC 33.9 g/dl (32.0-35.9); MEAN PLT VOLUME 8.6 fl (7.5-11.1); MONO % 12.2 % (3.8-10.2); PLATELET COUNT 146 10^3/uL (134-434); WHITE BLOOD COUNT 5.3 K/mm3 (4.0-10.0)
[2021-08-23] MEDS: ALBUTEROL SO4 2.5/IPRATROPIUM 0.5 INH SOL 3 ML VIAL.NEB. NEB SCH ×4 (07:45→20:25)
[2021-08-23 07:50] LABS: ALBUMIN 2.7 g/dl (3.4-5.0); CALCIUM 8.3 mg/dL (8.5-10.1)
[2021-08-23 07:51] LABS: BLOOD UREA NITROGEN 18.1 mg/dL (7-18); MAGNESIUM 2.3 mg/dL (1.8-2.4)
[2021-08-23 07:53] LABS: CREATININE 0.7 mg/dL (0.55-1.3)
[2021-08-23 07:54] LABS: BILIRUBIN,TOTAL 0.7 mg/dL (0.2-1)
[2021-08-23 07:55] LABS: TOT PROT 6.3 g/dl (6.4-8.2)
[2021-08-23] MEDS: levETIRAcetam 250 MG TABLET PO SCH ×2 (09:50→21:05)
[2021-08-23] MEDS: POLYETHYLENE GLYCOL (HEALTHYLAX) 3350 17 GM PACKET PO SCH (09:50)
[2021-08-23] MEDS: APIXABAN 5 MG TABLET PO SCH ×2 (09:51→21:04)
[2021-08-23] MEDS: MULTIVIT-MINERALS ORAL LIQUID PO SCH (09:51)
[2021-08-23] MEDS: LACOSAMIDE 200 MG TABLET PO SCH ×2 (09:51→21:04)
[2021-08-23] MEDS: FAMOTIDINE 20 MG TABLET PO SCH (09:51)
[2021-08-23] MEDS: METOPROLOL TARTRATE 25 MG TABLET (FP) PO SCH ×2 (09:51→21:12)
[2021-08-23] MEDS: CALCIUM 500MG/VIT-D 200 UNITS COMBO TABLET (FP) PO SCH (09:52)
[2021-08-23] MEDS: ATORVASTATIN CA 10 MG TABLET (FP) PO SCH (21:04)
[2021-08-23] MEDS: PHENobarbital 30 MG TABLET PO SCH (21:05)
[2021-08-23] MEDS: DOCUSATE SODIUM 100 MG CAPSULE (FP) PO SCH (21:05)
[2021-08-23] MEDS: SENNOSIDES 8.6MG TABLET (FP) PO SCH (21:06)
[2021-08-23] MEDS: LATANOPROST 0.005% OPHTH SOLN 2.5ML BOTTLE OU SCH (21:06)
[2021-08-24] MEDS: VITAMINS A AND D TOPICAL OINTMENT 60 GM TUBE TP SCH ×3 (06:49→21:17)
[2021-08-24] MEDS: ALBUTEROL SO4 2.5/IPRATROPIUM 0.5 INH SOL 3 ML VIAL.NEB. NEB SCH ×4 (07:35→20:58)
[2021-08-24] MEDS: METOPROLOL TARTRATE 25 MG TABLET (FP) PO SCH ×2 (09:00→21:16)
[2021-08-24] MEDS: LACOSAMIDE 200 MG TABLET PO SCH ×2 (09:00→21:16)
[2021-08-24] MEDS: POLYETHYLENE GLYCOL (HEALTHYLAX) 3350 17 GM PACKET PO SCH (09:00)
[2021-08-24] MEDS: CALCIUM 500MG/VIT-D 200 UNITS COMBO TABLET (FP) PO SCH (09:00)
[2021-08-24] MEDS: FAMOTIDINE 20 MG TABLET PO SCH (09:00)
[2021-08-24] MEDS: levETIRAcetam 250 MG TABLET PO SCH ×2 (09:00→21:16)
[2021-08-24] MEDS: APIXABAN 5 MG TABLET PO SCH ×2 (09:00→21:16)
[2021-08-24] MEDS: MULTIVIT-MINERALS ORAL LIQUID PO SCH (09:00)
[2021-08-24 13:04] LABS: BASO % 0.4 % (0-2.0); EOS % 8.5 % (0-4.5); HEMATOCRIT 38.7 % (35.4-49); HEMOGLOBIN 12.7 GM/dL (11.7-16.9); LYMPH % 14.1 % (8-40); MCH 32.6 pg (25.7-33.7); MCHC 32.9 g/dl (32.0-35.9); MEAN CELL VOLUME 99.3 fl (80-96); MEAN PLT VOLUME 8.9 fl (7.5-11.1); MONO % 11.9 % (3.8-10.2); NEUT % 65.1 % (42.8-82.8); PLATELET COUNT 170 10^3/uL (134-434); RBC 3.89 M/mm3 (4.00-5.60); RDW 15.1 % (11.9-15.9); WHITE BLOOD COUNT 5.1 K/mm3 (4.0-10.0)
[2021-08-24 13:25] LABS: CALCIUM 8.8 mg/dL (8.5-10.1)
[2021-08-24 13:26] LABS: ALBUMIN 2.8 g/dl (3.4-5.0); BLOOD UREA NITROGEN 17.1 mg/dL (7-18); MAGNESIUM 2.3 mg/dL (1.8-2.4)
[2021-08-24 13:29] LABS: CREATININE 0.8 mg/dL (0.55-1.3); PHOSPHOROUS 3.3 mg/dL (2.5-4.9); TOT PROT 6.7 g/dl (6.4-8.2)
[2021-08-24 13:31] LABS: BILIRUBIN,TOTAL 0.4 mg/dL (0.2-1)
[2021-08-24] MEDS: DOCUSATE SODIUM 100 MG CAPSULE (FP) PO SCH (21:15)
[2021-08-24] MEDS: ATORVASTATIN CA 10 MG TABLET (FP) PO SCH (21:16)
[2021-08-24] MEDS: SENNOSIDES 8.6MG TABLET (FP) PO SCH (21:16)
[2021-08-24] MEDS: PHENobarbital 30 MG TABLET PO SCH (21:16)
[2021-08-24] MEDS: LATANOPROST 0.005% OPHTH SOLN 2.5ML BOTTLE OU SCH (21:18)
[2021-08-25] MEDS: VITAMINS A AND D TOPICAL OINTMENT 60 GM TUBE TP SCH ×3 (06:39→21:25)
[2021-08-25 07:16] LABS: ALBUMIN 2.9 g/dl (3.4-5.0); CALCIUM 8.9 mg/dL (8.5-10.1)
[2021-08-25 07:17] LABS: BLOOD UREA NITROGEN 13.5 mg/dL (7-18)
[2021-08-25 07:19] LABS: CREATININE 0.8 mg/dL (0.55-1.3)
[2021-08-25 07:21] LABS: BILIRUBIN,TOTAL 0.3 mg/dL (0.2-1); TOT PROT 6.4 g/dl (6.4-8.2)
[2021-08-25 07:30] LABS: HEMATOCRIT 37.1 % (35.4-49); HEMOGLOBIN 12.3 GM/dL (11.7-16.9); MCH 32.8 pg (25.7-33.7); MCHC 33.1 g/dl (32.0-35.9); MEAN PLT VOLUME 8.9 fl (7.5-11.1); PLATELET COUNT 174 10^3/uL (134-434); RBC 3.75 M/mm3 (4.00-5.60); RDW 14.9 % (11.9-15.9)
[2021-08-25] MEDS ORDERED: SODIUM CHLORIDE 500 ML IV SCH (07:30)
[2021-08-25] MEDS ORDERED: PT OWN MED DRAWER 7, Y5N ONE ×2 (08:27→11:31)
[2021-08-25] MEDS ORDERED: RAPID SEQUENCE INTUBATION KIT NR ONE (08:27)
[2021-08-25] MEDS: ALBUTEROL SO4 2.5/IPRATROPIUM 0.5 INH SOL 3 ML VIAL.NEB. NEB SCH ×4 (08:59→20:49)
[2021-08-25] MEDS: levETIRAcetam 250 MG TABLET PO SCH ×2 (10:55→21:24)
[2021-08-25] MEDS: CALCIUM 500MG/VIT-D 200 UNITS COMBO TABLET (FP) PO SCH (10:55)
[2021-08-25] MEDS: APIXABAN 5 MG TABLET PO SCH ×2 (10:55→21:24)
[2021-08-25] MEDS: LACOSAMIDE 200 MG TABLET PO SCH ×2 (10:55→21:24)
[2021-08-25] MEDS: FAMOTIDINE 20 MG TABLET PO SCH (10:55)
[2021-08-25] MEDS: METOPROLOL TARTRATE 25 MG TABLET (FP) PO SCH ×2 (10:55→21:24)
[2021-08-25] MEDS: POLYETHYLENE GLYCOL (HEALTHYLAX) 3350 17 GM PACKET PO SCH (10:55)
[2021-08-25] MEDS: MULTIVIT-MINERALS ORAL LIQUID PO SCH (10:55)
[2021-08-25] MEDS: SENNOSIDES 8.6MG TABLET (FP) PO SCH (21:24)
[2021-08-25] MEDS: PHENobarbital 30 MG TABLET PO SCH (21:24)
[2021-08-25] MEDS: ATORVASTATIN CA 10 MG TABLET (FP) PO SCH (21:24)
[2021-08-25] MEDS: DOCUSATE SODIUM 100 MG CAPSULE (FP) PO SCH (21:24)
[2021-08-25] MEDS: LATANOPROST 0.005% OPHTH SOLN 2.5ML BOTTLE OU SCH (21:25)
[2021-08-26] MEDS ORDERED: PT OWN MED DRAWER 7, Y5N ONE ×2 (05:43→08:39)
[2021-08-26] MEDS: VITAMINS A AND D TOPICAL OINTMENT 60 GM TUBE TP SCH ×3 (06:18→21:17)
[2021-08-26] MEDS: ALBUTEROL SO4 2.5/IPRATROPIUM 0.5 INH SOL 3 ML VIAL.NEB. NEB SCH ×4 (07:45→20:54)
[2021-08-26] MEDS: FAMOTIDINE 20 MG TABLET PO SCH (08:59)
[2021-08-26] MEDS: MULTIVIT-MINERALS ORAL LIQUID PO SCH (08:59)
[2021-08-26] MEDS: LACOSAMIDE 200 MG TABLET PO SCH ×2 (08:59→21:16)
[2021-08-26] MEDS: POLYETHYLENE GLYCOL (HEALTHYLAX) 3350 17 GM PACKET PO SCH (08:59)
[2021-08-26] MEDS: APIXABAN 5 MG TABLET PO SCH ×2 (08:59→21:17)
[2021-08-26] MEDS: levETIRAcetam 250 MG TABLET PO SCH ×2 (09:00→21:17)
[2021-08-26] MEDS: CALCIUM 500MG/VIT-D 200 UNITS COMBO TABLET (FP) PO SCH (09:00)
[2021-08-26] MEDS: METOPROLOL TARTRATE 25 MG TABLET (FP) PO SCH ×2 (09:00→21:16)
[2021-08-26] MEDS: SENNOSIDES 8.6MG TABLET (FP) PO SCH (21:16)
[2021-08-26] MEDS: PHENobarbital 30 MG TABLET PO SCH (21:16)
[2021-08-26] MEDS: DOCUSATE SODIUM 100 MG CAPSULE (FP) PO SCH (21:16)
[2021-08-26] MEDS: LATANOPROST 0.005% OPHTH SOLN 2.5ML BOTTLE OU SCH (21:17)
[2021-08-26] MEDS: ATORVASTATIN CA 10 MG TABLET (FP) PO SCH (21:17)
[2021-08-27] MEDS: VITAMINS A AND D TOPICAL OINTMENT 60 GM TUBE TP SCH ×3 (06:41→21:46)
[2021-08-27] MEDS: ALBUTEROL SO4 2.5/IPRATROPIUM 0.5 INH SOL 3 ML VIAL.NEB. NEB SCH ×5 (07:56→20:10)
[2021-08-27] MEDS ORDERED: PT OWN MED DRAWER 7, Y5N ONE (09:14)
[2021-08-27] MEDS: MULTIVIT-MINERALS ORAL LIQUID PO SCH (09:29)
[2021-08-27] MEDS: levETIRAcetam 250 MG TABLET PO SCH ×2 (09:29→21:45)
[2021-08-27] MEDS: CALCIUM 500MG/VIT-D 200 UNITS COMBO TABLET (FP) PO SCH (09:29)
[2021-08-27] MEDS: FAMOTIDINE 20 MG TABLET PO SCH (09:29)
[2021-08-27] MEDS: APIXABAN 5 MG TABLET PO SCH ×2 (09:29→21:45)
[2021-08-27] MEDS: METOPROLOL TARTRATE 25 MG TABLET (FP) PO SCH ×2 (09:29→21:45)
[2021-08-27] MEDS: LACOSAMIDE 200 MG TABLET PO SCH ×2 (09:29→21:45)
[2021-08-27] MEDS: POLYETHYLENE GLYCOL (HEALTHYLAX) 3350 17 GM PACKET PO SCH (09:30)
[2021-08-27] MEDS: ATORVASTATIN CA 10 MG TABLET (FP) PO SCH (21:45)
[2021-08-27] MEDS: SENNOSIDES 8.6MG TABLET (FP) PO SCH (21:45)
[2021-08-27] MEDS: DOCUSATE SODIUM 100 MG CAPSULE (FP) PO SCH (21:45)
[2021-08-27] MEDS: PHENobarbital 30 MG TABLET PO SCH (21:45)
[2021-08-27] MEDS: LATANOPROST 0.005% OPHTH SOLN 2.5ML BOTTLE OU SCH (21:46)
[2021-08-28] MEDS: VITAMINS A AND D TOPICAL OINTMENT 60 GM TUBE TP SCH ×3 (05:48→21:40)
[2021-08-28] MEDS: ALBUTEROL SO4 2.5/IPRATROPIUM 0.5 INH SOL 3 ML VIAL.NEB. NEB SCH ×4 (08:45→20:10)
[2021-08-28] MEDS: APIXABAN 5 MG TABLET PO SCH ×2 (09:56→21:24)
[2021-08-28] MEDS: METOPROLOL TARTRATE 25 MG TABLET (FP) PO SCH ×2 (09:56→21:24)
[2021-08-28] MEDS: CALCIUM 500MG/VIT-D 200 UNITS COMBO TABLET (FP) PO SCH (09:56)
[2021-08-28] MEDS: FUROSEMIDE 20 MG TABLET (FP) PO SCH (09:56)
[2021-08-28] MEDS: LACOSAMIDE 200 MG TABLET PO SCH ×2 (09:57→21:24)
[2021-08-28] MEDS: FAMOTIDINE 20 MG TABLET PO SCH (09:57)
[2021-08-28] MEDS: POLYETHYLENE GLYCOL (HEALTHYLAX) 3350 17 GM PACKET PO SCH (09:57)
[2021-08-28] MEDS: levETIRAcetam 250 MG TABLET PO SCH (09:57)
[2021-08-28] MEDS: MULTIVIT-MINERALS ORAL LIQUID PO SCH (09:58)
[2021-08-28] MEDS ORDERED: PT OWN MED DRAWER 7, Y5N ONE ×2 (11:31→14:29)
[2021-08-28] MEDS: levETIRAcetam 500 MG TABLET (FP) PO SCH (21:23)
[2021-08-28] MEDS: SENNOSIDES 8.6MG TABLET (FP) PO SCH (21:24)
[2021-08-28] MEDS: DOCUSATE SODIUM 100 MG CAPSULE (FP) PO SCH (21:24)
[2021-08-28] MEDS: PHENobarbital 30 MG TABLET PO SCH (21:24)
[2021-08-28] MEDS: ATORVASTATIN CA 10 MG TABLET (FP) PO SCH (21:24)
[2021-08-28] MEDS: LATANOPROST 0.005% OPHTH SOLN 2.5ML BOTTLE OU SCH (21:40)
[2021-08-29] MEDS ORDERED: ALBUTEROL SO4 2.5/IPRATROPIUM 0.5 INH SOL 3 ML VIAL.NEB. NEB ONE ×2 (00:59→09:15)
[2021-08-29] MEDS: VITAMINS A AND D TOPICAL OINTMENT 60 GM TUBE TP SCH ×3 (05:18→22:33)
[2021-08-29] MEDS: ALBUTEROL SO4 2.5/IPRATROPIUM 0.5 INH SOL 3 ML VIAL.NEB. NEB SCH ×4 (07:50→20:39)
[2021-08-29] MEDS ORDERED: MINERAL OIL ENEMA 133 ML ENEMA RC ONE (08:07)
[2021-08-29] MEDS ORDERED: PT OWN MED DRAWER 7, Y5N ONE (08:09)
[2021-08-29] MEDS: MULTIVIT-MINERALS ORAL LIQUID PO SCH (09:20)
[2021-08-29] MEDS: FAMOTIDINE 20 MG TABLET PO SCH (09:22)
[2021-08-29] MEDS: LACOSAMIDE 200 MG TABLET PO SCH ×2 (09:23→22:31)
[2021-08-29] MEDS: CALCIUM 500MG/VIT-D 200 UNITS COMBO TABLET (FP) PO SCH (09:23)
[2021-08-29] MEDS: METOPROLOL TARTRATE 25 MG TABLET (FP) PO SCH ×2 (09:23→22:32)
[2021-08-29] MEDS: APIXABAN 5 MG TABLET PO SCH ×2 (09:23→22:31)
[2021-08-29] MEDS: FUROSEMIDE 20 MG TABLET (FP) PO SCH (09:24)
[2021-08-29] MEDS: levETIRAcetam 500 MG TABLET (FP) PO SCH ×2 (09:24→22:31)
[2021-08-29] MEDS: POLYETHYLENE GLYCOL (HEALTHYLAX) 3350 17 GM PACKET PO SCH (09:37)
[2021-08-29] MEDS: PHENobarbital 30 MG TABLET PO SCH (22:30)
[2021-08-29] MEDS: ATORVASTATIN CA 10 MG TABLET (FP) PO SCH (22:31)
[2021-08-29] MEDS: DOCUSATE SODIUM 100 MG CAPSULE (FP) PO SCH (22:32)
[2021-08-29] MEDS: SENNOSIDES 8.6MG TABLET (FP) PO SCH (22:33)
[2021-08-29] MEDS: LATANOPROST 0.005% OPHTH SOLN 2.5ML BOTTLE OU SCH (22:34)
[2021-08-30] MEDS: VITAMINS A AND D TOPICAL OINTMENT 60 GM TUBE TP SCH ×3 (06:54→21:16)
[2021-08-30] MEDS: ALBUTEROL SO4 2.5/IPRATROPIUM 0.5 INH SOL 3 ML VIAL.NEB. NEB SCH ×4 (07:45→20:39)
[2021-08-30] MEDS: METOPROLOL TARTRATE 25 MG TABLET (FP) PO SCH ×2 (09:36→22:55)
[2021-08-30] MEDS: POLYETHYLENE GLYCOL (HEALTHYLAX) 3350 17 GM PACKET PO SCH (09:36)
[2021-08-30] MEDS: MULTIVIT-MINERALS ORAL LIQUID PO SCH (09:36)
[2021-08-30] MEDS: levETIRAcetam 500 MG TABLET (FP) PO SCH ×2 (09:36→22:55)
[2021-08-30] MEDS: APIXABAN 5 MG TABLET PO SCH ×2 (09:36→22:55)
[2021-08-30] MEDS: FUROSEMIDE 20 MG TABLET (FP) PO SCH (09:36)
[2021-08-30] MEDS: FAMOTIDINE 20 MG TABLET PO SCH (09:37)
[2021-08-30] MEDS: LACOSAMIDE 200 MG TABLET PO SCH ×2 (09:37→22:58)
[2021-08-30] MEDS: CALCIUM 500MG/VIT-D 200 UNITS COMBO TABLET (FP) PO SCH (09:37)
[2021-08-30] MEDS: methylPREDNISolone NA SUCC 40 MG/1 ML VIAL IVPB SCH ×2 (13:03→21:16)
[2021-08-30] MEDS: DOCUSATE SODIUM 100 MG CAPSULE (FP) PO SCH (22:54)
[2021-08-30] MEDS: ATORVASTATIN CA 10 MG TABLET (FP) PO SCH (22:55)
[2021-08-30] MEDS: PHENobarbital 30 MG TABLET PO SCH (22:56)
[2021-08-30] MEDS: SENNOSIDES 8.6MG TABLET (FP) PO SCH (22:58)
[2021-08-30] MEDS: LATANOPROST 0.005% OPHTH SOLN 2.5ML BOTTLE OU SCH (22:59)
[2021-08-31] MEDS: DOCUSATE SODIUM 100 MG CAPSULE (FP) PO SCH ×2 (00:37→21:42)
[2021-08-31] MEDS: METOPROLOL TARTRATE 25 MG TABLET (FP) PO SCH ×3 (00:37→21:43)
[2021-08-31] MEDS: ATORVASTATIN CA 10 MG TABLET (FP) PO SCH ×2 (00:37→21:43)
[2021-08-31] MEDS: SENNOSIDES 8.6MG TABLET (FP) PO SCH ×2 (00:37→21:43)
[2021-08-31] MEDS: LACOSAMIDE 200 MG TABLET PO SCH ×3 (00:37→21:44)
[2021-08-31] MEDS: APIXABAN 5 MG TABLET PO SCH ×3 (00:37→21:43)
[2021-08-31] MEDS: LATANOPROST 0.005% OPHTH SOLN 2.5ML BOTTLE OU SCH ×2 (00:37→22:39)
[2021-08-31] MEDS: PHENobarbital 30 MG TABLET PO SCH ×2 (00:37→21:43)
[2021-08-31] MEDS: levETIRAcetam 500 MG TABLET (FP) PO SCH ×3 (00:37→21:43)
[2021-08-31] MEDS: VITAMINS A AND D TOPICAL OINTMENT 60 GM TUBE TP SCH ×3 (06:02→22:39)
[2021-08-31] MEDS: ALBUTEROL SO4 2.5/IPRATROPIUM 0.5 INH SOL 3 ML VIAL.NEB. NEB SCH ×4 (07:25→20:28)
[2021-08-31 08:28] LABS: HEMATOCRIT 33.9 % (35.4-49); HEMOGLOBIN 11.3 GM/dL (11.7-16.9); MCH 32.7 pg (25.7-33.7); MCHC 33.4 g/dl (32.0-35.9); MEAN CELL VOLUME 97.9 fl (80-96); MEAN PLT VOLUME 8.3 fl (7.5-11.1); PLATELET COUNT 180 10^3/uL (134-434); RBC 3.46 M/mm3 (4.00-5.60); RDW 14.8 % (11.9-15.9); WHITE BLOOD COUNT 3.4 K/mm3 (4.0-10.0)
[2021-08-31 08:51] LABS: CALCIUM 8.4 mg/dL (8.5-10.1)
[2021-08-31 08:52] LABS: ALBUMIN 2.8 g/dl (3.4-5.0); BLOOD UREA NITROGEN 19.6 mg/dL (7-18)
[2021-08-31 08:55] LABS: CREATININE 0.8 mg/dL (0.55-1.3)
[2021-08-31 08:57] LABS: BILIRUBIN,TOTAL 0.4 mg/dL (0.2-1); TOT PROT 6.4 g/dl (6.4-8.2)
[2021-08-31] MEDS ORDERED: PT OWN MED DRAWER 7, Y5N ONE (09:42)
[2021-08-31] MEDS: CALCIUM 500MG/VIT-D 200 UNITS COMBO TABLET (FP) PO SCH (09:54)
[2021-08-31] MEDS: POLYETHYLENE GLYCOL (HEALTHYLAX) 3350 17 GM PACKET PO SCH (09:54)
[2021-08-31] MEDS: MULTIVIT-MINERALS ORAL LIQUID PO SCH (09:54)
[2021-08-31] MEDS: FAMOTIDINE 20 MG TABLET PO SCH (09:54)
[2021-08-31] MEDS: methylPREDNISolone NA SUCC 40 MG/1 ML VIAL IVPB SCH ×2 (09:55→21:44)
[2021-09-01] MEDS: VITAMINS A AND D TOPICAL OINTMENT 60 GM TUBE TP SCH ×3 (05:31→21:26)
[2021-09-01] MEDS: ALBUTEROL SO4 2.5/IPRATROPIUM 0.5 INH SOL 3 ML VIAL.NEB. NEB SCH ×4 (07:40→20:16)
[2021-09-01 07:46] LABS: HEMATOCRIT 37.5 % (35.4-49); HEMOGLOBIN 12.3 GM/dL (11.7-16.9); MCH 32.4 pg (25.7-33.7); MCHC 32.8 g/dl (32.0-35.9); MEAN CELL VOLUME 98.9 fl (80-96); MEAN PLT VOLUME 8.6 fl (7.5-11.1); PLATELET COUNT 193 10^3/uL (134-434); RBC 3.79 M/mm3 (4.00-5.60); RDW 14.7 % (11.9-15.9); WHITE BLOOD COUNT 5.3 K/mm3 (4.0-10.0)
[2021-09-01 08:12] LABS: CALCIUM 8.5 mg/dL (8.5-10.1); MAGNESIUM 2.1 mg/dL (1.8-2.4)
[2021-09-01 08:13] LABS: BLOOD UREA NITROGEN 17.3 mg/dL (7-18)
[2021-09-01 08:15] LABS: ALBUMIN 3.1 g/dl (3.4-5.0); PHOSPHOROUS 2.4 mg/dL (2.5-4.9)
[2021-09-01 08:16] LABS: BILIRUBIN,TOTAL 0.4 mg/dL (0.2-1); TOT PROT 7.3 g/dl (6.4-8.2)
[2021-09-01 08:19] LABS: CREATININE 0.9 mg/dL (0.55-1.3)
[2021-09-01] MEDS: APIXABAN 5 MG TABLET PO SCH ×2 (10:07→21:25)
[2021-09-01] MEDS: POLYETHYLENE GLYCOL (HEALTHYLAX) 3350 17 GM PACKET PO SCH (10:07)
[2021-09-01] MEDS: methylPREDNISolone NA SUCC 40 MG/1 ML VIAL IVPB SCH (10:07)
[2021-09-01] MEDS: METOPROLOL TARTRATE 25 MG TABLET (FP) PO SCH ×2 (10:08→21:24)
[2021-09-01] MEDS: levETIRAcetam 500 MG TABLET (FP) PO SCH ×2 (10:08→21:25)
[2021-09-01] MEDS: MULTIVIT-MINERALS ORAL LIQUID PO SCH (10:08)
[2021-09-01] MEDS: FAMOTIDINE 20 MG TABLET PO SCH (10:08)
[2021-09-01] MEDS: CALCIUM 500MG/VIT-D 200 UNITS COMBO TABLET (FP) PO SCH (10:08)
[2021-09-01] MEDS: LACOSAMIDE 200 MG TABLET PO SCH ×2 (10:08→21:24)
[2021-09-01] MEDS: PHENobarbital 30 MG TABLET PO SCH (21:18)
[2021-09-01] MEDS: SENNOSIDES 8.6MG TABLET (FP) PO SCH (21:25)
[2021-09-01] MEDS: ATORVASTATIN CA 10 MG TABLET (FP) PO SCH (21:25)
[2021-09-01] MEDS: DOCUSATE SODIUM 100 MG CAPSULE (FP) PO SCH (21:26)
[2021-09-01] MEDS: LATANOPROST 0.005% OPHTH SOLN 2.5ML BOTTLE OU SCH (21:28)
[2021-09-02] MEDS: VITAMINS A AND D TOPICAL OINTMENT 60 GM TUBE TP SCH ×2 (06:18→14:14)
[2021-09-02 07:42] LABS: HEMATOCRIT 36.9 % (35.4-49); HEMOGLOBIN 12.2 GM/dL (11.7-16.9); MCH 32.7 pg (25.7-33.7); MCHC 33.1 g/dl (32.0-35.9); MEAN CELL VOLUME 98.7 fl (80-96); MEAN PLT VOLUME 8.6 fl (7.5-11.1); PLATELET COUNT 179 10^3/uL (134-434); RBC 3.74 M/mm3 (4.00-5.60); WHITE BLOOD COUNT 4.3 K/mm3 (4.0-10.0)
[2021-09-02] MEDS: ALBUTEROL SO4 2.5/IPRATROPIUM 0.5 INH SOL 3 ML VIAL.NEB. NEB SCH ×2 (08:00→12:00)
[2021-09-02 08:20] LABS: CALCIUM 8.7 mg/dL (8.5-10.1)
[2021-09-02 08:21] LABS: BLOOD UREA NITROGEN 16.2 mg/dL (7-18); CREATININE 0.7 mg/dL (0.55-1.3); MAGNESIUM 2.3 mg/dL (1.8-2.4)
[2021-09-02 08:22] LABS: BILIRUBIN,TOTAL 0.4 mg/dL (0.2-1); TOT PROT 6.9 g/dl (6.4-8.2)
[2021-09-02] MEDS: levETIRAcetam 500 MG TABLET (FP) PO SCH (10:02)
[2021-09-02] MEDS: APIXABAN 5 MG TABLET PO SCH (10:02)
[2021-09-02] MEDS: CALCIUM 500MG/VIT-D 200 UNITS COMBO TABLET (FP) PO SCH (10:02)
[2021-09-02] MEDS: METOPROLOL TARTRATE 25 MG TABLET (FP) PO SCH (10:02)
[2021-09-02] MEDS: FAMOTIDINE 20 MG TABLET PO SCH (10:02)
[2021-09-02] MEDS: POLYETHYLENE GLYCOL (HEALTHYLAX) 3350 17 GM PACKET PO SCH (10:02)
[2021-09-02] MEDS: LACOSAMIDE 200 MG TABLET PO SCH (10:02)
[2021-09-02] MEDS: MULTIVIT-MINERALS ORAL LIQUID PO SCH (10:03)
[2021-09-02] MEDS ORDERED: PT OWN MED DRAWER 7, Y5N ONE (10:38)
[2021-09-02 15:35] VITALS: BP 100/73; PULSE 84; TEMP 98.2
== END 2021-09-02 15:52 | DRG 133 ==
LOC: JER 18:50 → JERBED 21:17 → J6S 08-13 15:55 → JICU 08-22 12:34 → J4W 08-27 22:28
PROVIDERS: ATTEND Internal Medicine
DX: J96.01 Acute respiratory failure with hypoxia (principal); G93.41 Metabolic encephalopathy; I11.0 Hypertensive heart disease with heart failure; I50.33 Acute on chronic diastolic (congestive) heart failure; N17.9 Acute kidney failure, unspecified; G40.909 Epilepsy, unspecified, not intractable, without status epilepticus; I48.19 Other persistent atrial fibrillation; E78.5 Hyperlipidemia, unspecified; F31.9 Bipolar disorder, unspecified; I25.10 Atherosclerotic heart disease of native coronary artery without angina pectoris; K21.9 Gastro-esophageal reflux disease without esophagitis; J98.11 Atelectasis; J98.01 Acute bronchospasm; I95.9 Hypotension, unspecified; N39.0 Urinary tract infection, site not specified; F25.9 Schizoaffective disorder, unspecified; M19.90 Unspecified osteoarthritis, unspecified site; J44.1 Chronic obstructive pulmonary disease with (acute) exacerbation; F03.90 Unspecified dementia, unspecified severity, without behavioral disturbance, psychotic disturbance, mood disturbance, and anxiety; E87.2 Acidosis; K59.00 Constipation, unspecified; Z95.0 Presence of cardiac pacemaker
CPT/HCPCS: 36415; 70450-TC; 71045-TC-FY; 71046-TC-FY; 74018-TC-FY; 80048; 80053; 80177; 81003; 82550; 82962; 83605; 83615; 83735; 83880; 84100; 84484; 85025; 85027; 85610; 85730; 86140; 87040; 87086; 87804; 87807; 87899; 93005; 93010; 93970-TC; 94640; 94660; 99285-25; C9803-CS; J1100; U0003; U0005

== ENCOUNTER 2022-08-30 16:02 | Inpatient (IN) | payer OTHER ==
[2022-08-30] MEDS ORDERED: SODIUM CHLORIDE 1,837 ML IV ONE (16:30)
[2022-08-30] MEDS ORDERED: ACETAMINOPHEN 1000 MG/100 ML BAG IVPB ONE (16:47)
[2022-08-30] MEDS ORDERED: SODIUM CHLORIDE 0.9% 500 ML INFUS.BAG IV ONE (16:49)
[2022-08-30] MEDS ORDERED: ACETAMINOPHEN INJECTION 100 ML IVPB ONE (17:27)
[2022-08-30 17:28] LABS: VENOUS BASE EXCESS 5.3 mmol/L (-2-2); VENOUS O2 SATURATION 52.5 % (70-80); VENOUS PCO2 59.4 mmHg (38-52); VENOUS PH 7.365 (7.310-7.410)
[2022-08-30 17:39] LABS: BASO % 0.3 % (0-2.0); EOS % 0.3 % (0-4.5); HEMATOCRIT 42.4 % (35.4-49); HEMOGLOBIN 13.6 GM/dL (11.7-16.9); LYMPH % 11.2 % (8-40); MCH 31.2 pg (25.7-33.7); MCHC 32.1 g/dl (32.0-35.9); MEAN CELL VOLUME 97.2 fl (80-96); MEAN PLT VOLUME 8.2 fl (7.5-11.1); MONO % 10.9 % (3.8-10.2); NEUT % 77.3 % (42.8-82.8); PLATELET COUNT 263 10^3/uL (134-434); RBC 4.36 M/mm3 (4.00-5.60); RDW 14.7 % (11.9-15.9)
[2022-08-30 17:42] LABS: EPI CELLS 7 /uL (0-25.1); HYALINE CASTS 0 /uL (0-3.1); PH,URINE 5.5 (5.0-8.0); URINE APPEARANCE CLEAR; URINE BACTERIA 3 /uL (0-1359); URINE BILIRUBIN 1+ (NEGATIVE); URINE COLOR DK YELLOW; URINE GLUCOSE (UA) NEGATIVE (NEGATIVE); URINE KETONE TRACE (NEGATIVE); URINE LEUK ESTERASE NEGATIVE (NEGATIVE); URINE NITRITE NEGATIVE (NEGATIVE); URINE PROTEIN 1+ (NEGATIVE); URINE RBC 16 /uL (0-23.9); URINE WBC 3 /uL (0-25.8)
[2022-08-30 17:45] LABS: INR 1.32 (0.83-1.09); PROTHROMBIN TIME (PATIENT) 15.2 SEC (9.7-13.0)
[2022-08-30 17:48] LABS: ACTIVATED PTT 32.6 SECONDS (25.2-36.5)
[2022-08-30 17:50] LABS: CHLORIDE 112 mmol/L (98-107); SODIUM 152 mmol/L (136-145)
[2022-08-30 17:52] LABS: ALBUMIN 2.9 g/dl (3.4-5.0); CALCIUM 8.9 mg/dL (8.5-10.1)
[2022-08-30 17:53] LABS: ANION GAP 11 MMOL/L (8-16); BLOOD UREA NITROGEN 38.9 mg/dL (7-18); CO2 30 mmol/L (21-32); GLUCOSE,RANDOM 111 mg/dL (74-106)
[2022-08-30 17:56] LABS: CREATININE 1.1 mg/dL (0.55-1.3); SGOT/AST 35 U/L (15-37); SGPT/ALT 50 U/L (13-61)
[2022-08-30 17:58] LABS: ALK PHOS 73 U/L (45-117); BILIRUBIN,TOTAL 0.6 mg/dL (0.2-1); TOT PROT 7.4 g/dl (6.4-8.2)
[2022-08-30] MEDS ORDERED: VANCOMYCIN 1 GM in D5W (PRE-DOCKED) 1,000 MG/250 ML IVPB ONE (17:59)
[2022-08-30] MEDS ORDERED: CEFEPIME HCL/D5W 2 GM/50 ML BAG IVPB ONE (18:01)
[2022-08-30] MEDS ORDERED: CEFEPIME 1 GM/100 ML BAG IVPB ONE (18:22)
[2022-08-30] MEDS ORDERED: LACTATED RINGERS SOLUTION 1000 ML INFUS.BAG IV ONE (18:31)
[2022-08-30] MEDS ORDERED: VANCOMYCIN/WATER FOR INJ (PEG) 1,000 MG/200 ML BAG IVPB ONE (18:58)
[2022-08-30] MEDS ORDERED: CEFEPIME 2 GM/100 ML BAG IVPB ONE (19:45)
[2022-08-31] MEDS ORDERED: BISACODYL 5 MG TABLET.DR (FP) PO PRN (00:45)
[2022-08-31 00:53] LABS: BLOOD UREA NITROGEN 38.7 mg/dL (7-18); CALCIUM 8.6 mg/dL (8.5-10.1)
[2022-08-31 00:56] LABS: CREATININE 1.1 mg/dL (0.55-1.3)
[2022-08-31] MEDS ORDERED: SODIUM CHLORIDE 0.45% 1,000 ML IV SCH ×2 (01:00→02:33)
[2022-08-31 01:50] VITALS: BMI 27.6
[2022-08-31] MEDS: ALBUTEROL SO4 2.5/IPRATROPIUM 0.5 INH SOL 3 ML VIAL.NEB. NEB SCH ×2 (04:52→08:53)
[2022-08-31 09:54] LABS: BASO % 0.4 % (0-2.0); EOS % 2.2 % (0-4.5); HEMATOCRIT 37.6 % (35.4-49); HEMOGLOBIN 12.2 GM/dL (11.7-16.9); LYMPH % 11.7 % (8-40); MCH 31.8 pg (25.7-33.7); MCHC 32.4 g/dl (32.0-35.9); MEAN PLT VOLUME 8.1 fl (7.5-11.1); MONO % 7.3 % (3.8-10.2); NEUT % 78.4 % (42.8-82.8); PLATELET COUNT 206 10^3/uL (134-434); RBC 3.83 M/mm3 (4.00-5.60); RDW 14.4 % (11.9-15.9); WHITE BLOOD COUNT 9.4 K/mm3 (4.0-10.0)
[2022-08-31] MEDS ORDERED: ENOXAPARIN NA (PORCINE) 40 MG/0.4 ML DISP.SYRIN SQ SCH (10:00)
[2022-08-31] MEDS ORDERED: DIGOXIN 0.125 MG TABLET PO SCH (10:00)
[2022-08-31] MEDS ORDERED: CEFEPIME 2 GM in DEXTROSE 5%-WATER 100 ML IVPB SCH (10:00)
[2022-08-31 10:19] LABS: ALBUMIN 2.6 g/dl (3.4-5.0); BLOOD UREA NITROGEN 36.9 mg/dL (7-18); CALCIUM 8.5 mg/dL (8.5-10.1); MAGNESIUM 2.3 mg/dL (1.8-2.4)
[2022-08-31 10:22] LABS: CREATININE 0.7 mg/dL (0.55-1.3)
[2022-08-31 10:24] LABS: BILIRUBIN,TOTAL 0.8 mg/dL (0.2-1); TOT PROT 6.3 g/dl (6.4-8.2)
[2022-08-31] MEDS ORDERED: ALBUTEROL SO4 2.5/IPRATROPIUM 0.5 INH SOL 3 ML VIAL.NEB. NEB PRN (10:32)
[2022-08-31] MEDS: AMMONIUM LACTATE 12% LOTION 225 GM BOTTLE TP SCH ×2 (11:00→23:24)
[2022-08-31] MEDS: LACOSAMIDE 200 MG TABLET PO SCH ×2 (11:01→23:09)
[2022-08-31] MEDS: PANTOPRAZOLE 20 MG TABLET PO SCH (11:01)
[2022-08-31] MEDS: CALCIUM 500MG/VIT-D 200 UNITS COMBO TABLET (FP) PO SCH (11:01)
[2022-08-31] MEDS: APIXABAN 5 MG TABLET PO SCH ×2 (11:01→23:09)
[2022-08-31] MEDS: LORATADINE 10 MG TABLET PO SCH (11:02)
[2022-08-31] MEDS: METOPROLOL TARTRATE 25 MG TABLET (FP) PO SCH ×2 (11:02→23:58)
[2022-08-31] MEDS: VALSARTAN 40 MG TABLET PO SCH (11:02)
[2022-08-31] MEDS: levETIRAcetam 500 MG TABLET (FP) PO SCH ×2 (11:50→23:09)
[2022-08-31] MEDS: DEXTROSE 5%-WATER - 1,000 ML IV SCH (16:00)
[2022-08-31] MEDS: DIGOXIN 0.125 MG TABLET PO SCH (17:11)
[2022-08-31] MEDS: PIPERACILLIN/TAZOB 3.375 GM 3.375 GM in DEXTROSE 5%-WATER - 50 ML IVPB SCH (17:12)
[2022-08-31] MEDS ORDERED: VANCOMYCIN 1 GM/200 ML PREMIX BAG (RESTRICTED TO ID ONLY) IVPB ONE (19:00)
[2022-08-31] MEDS: PHENobarbital 30 MG TABLET PO SCH (23:08)
[2022-08-31] MEDS: SENNOSIDES/DOCUSATE COMBO (SENNA PLUS) TABLET (UD) PO SCH (23:08)
[2022-08-31] MEDS: ATORVASTATIN CA 10 MG TABLET (FP) PO SCH (23:09)
[2022-08-31] MEDS: LATANOPROST 0.005% OPHTH SOLN 2.5ML BOTTLE OU SCH (23:25)
[2022-09-01] MEDS: PIPERACILLIN/TAZOB 3.375 GM 3.375 GM in DEXTROSE 5%-WATER - 50 ML IVPB SCH ×3 (02:13→17:30)
[2022-09-01 09:30] LABS: BASO % 0.5 % (0-2.0); EOS % 4.8 % (0-4.5); HEMATOCRIT 38.3 % (35.4-49); HEMOGLOBIN 12.2 GM/dL (11.7-16.9); LYMPH % 13.1 % (8-40); MCH 31.2 pg (25.7-33.7); MCHC 31.7 g/dl (32.0-35.9); MEAN CELL VOLUME 98.2 fl (80-96); MEAN PLT VOLUME 8.3 fl (7.5-11.1); NEUT % 73.6 % (42.8-82.8); PLATELET COUNT 201 10^3/uL (134-434); RDW 14.8 % (11.9-15.9); WHITE BLOOD COUNT 7.2 K/mm3 (4.0-10.0)
[2022-09-01 09:41] LABS: ALBUMIN 2.7 g/dl (3.4-5.0); BLOOD UREA NITROGEN 34.1 mg/dL (7-18); CALCIUM 8.8 mg/dL (8.5-10.1); MAGNESIUM 2.5 mg/dL (1.8-2.4)
[2022-09-01 09:44] LABS: CREATININE 0.7 mg/dL (0.55-1.3)
[2022-09-01] MEDS: CALCIUM 500MG/VIT-D 200 UNITS COMBO TABLET (FP) PO SCH (09:45)
[2022-09-01 09:46] LABS: BILIRUBIN,TOTAL 0.4 mg/dL (0.2-1); TOT PROT 6.4 g/dl (6.4-8.2)
[2022-09-01] MEDS: METOPROLOL TARTRATE 25 MG TABLET (FP) PO SCH ×2 (09:46→22:11)
[2022-09-01] MEDS: APIXABAN 5 MG TABLET PO SCH ×2 (09:46→22:11)
[2022-09-01] MEDS: VALSARTAN 40 MG TABLET PO SCH ×2 (09:46→10:44)
[2022-09-01] MEDS: levETIRAcetam 500 MG TABLET (FP) PO SCH ×2 (09:46→22:13)
[2022-09-01] MEDS: AMMONIUM LACTATE 12% LOTION 225 GM BOTTLE TP SCH ×2 (09:46→22:14)
[2022-09-01] MEDS: LORATADINE 10 MG TABLET PO SCH (09:46)
[2022-09-01] MEDS: PANTOPRAZOLE 20 MG TABLET PO SCH (09:46)
[2022-09-01] MEDS ORDERED: CEFEPIME 2 GM in DEXTROSE 5%-WATER 100 ML IVPB SCH (10:00)
[2022-09-01] MEDS: DIGOXIN 0.125 MG TABLET PO SCH ×2 (10:45→10:50)
[2022-09-01] MEDS: LACOSAMIDE 200 MG TABLET PO SCH ×2 (10:46→22:13)
[2022-09-01] MEDS: DEXTROSE 5%-WATER - 1,000 ML IV SCH (17:32)
[2022-09-01] MEDS: SENNOSIDES/DOCUSATE COMBO (SENNA PLUS) TABLET (UD) PO SCH (22:12)
[2022-09-01] MEDS: PHENobarbital 30 MG TABLET PO SCH (22:13)
[2022-09-01] MEDS: ATORVASTATIN CA 10 MG TABLET (FP) PO SCH (22:14)
[2022-09-01] MEDS: LATANOPROST 0.005% OPHTH SOLN 2.5ML BOTTLE OU SCH (22:15)
[2022-09-02] MEDS: PIPERACILLIN/TAZOB 3.375 GM 3.375 GM in DEXTROSE 5%-WATER - 50 ML IVPB SCH (01:54)
[2022-09-02 09:08] LABS: BASO % 0.4 % (0-2.0); EOS % 5.8 % (0-4.5); HEMOGLOBIN 11.6 GM/dL (11.7-16.9); LYMPH % 18.3 % (8-40); MEAN CELL VOLUME 96.8 fl (80-96); MEAN PLT VOLUME 8.8 fl (7.5-11.1); NEUT % 66.5 % (42.8-82.8); PLATELET COUNT 194 10^3/uL (134-434); RBC 3.62 M/mm3 (4.00-5.60); RDW 14.4 % (11.9-15.9); WHITE BLOOD COUNT 6.1 K/mm3 (4.0-10.0)
[2022-09-02] MEDS: LORATADINE 10 MG TABLET PO SCH (10:48)
[2022-09-02] MEDS: VALSARTAN 40 MG TABLET PO SCH (10:48)
[2022-09-02] MEDS: LACOSAMIDE 200 MG TABLET PO SCH ×2 (10:49→22:18)
[2022-09-02] MEDS: PANTOPRAZOLE 20 MG TABLET PO SCH (10:49)
[2022-09-02] MEDS: CALCIUM 500MG/VIT-D 200 UNITS COMBO TABLET (FP) PO SCH (10:49)
[2022-09-02] MEDS: METOPROLOL TARTRATE 25 MG TABLET (FP) PO SCH ×2 (10:49→22:19)
[2022-09-02] MEDS: DIGOXIN 0.125 MG TABLET PO SCH (10:50)
[2022-09-02] MEDS: AMMONIUM LACTATE 12% LOTION 225 GM BOTTLE TP SCH ×2 (10:50→22:19)
[2022-09-02] MEDS: levETIRAcetam 500 MG TABLET (FP) PO SCH ×2 (10:51→22:19)
[2022-09-02] MEDS: APIXABAN 5 MG TABLET PO SCH ×2 (10:51→22:19)
[2022-09-02 12:28] LABS: BLOOD UREA NITROGEN 28.9 mg/dL (7-18)
[2022-09-02 12:30] LABS: CREATININE 0.7 mg/dL (0.55-1.3)
[2022-09-02 12:32] LABS: BILIRUBIN,TOTAL 0.4 mg/dL (0.2-1); CALCIUM 8.5 mg/dL (8.5-10.1); TOT PROT 6.2 g/dl (6.4-8.2)
[2022-09-02 12:33] LABS: ALBUMIN 2.7 g/dl (3.4-5.0); MAGNESIUM 2.2 mg/dL (1.8-2.4)
[2022-09-02] MEDS: POTASSIUM CHLORIDE 20 MEQ in DEXTROSE 5%-WATER - 1,000 ML IV SCH (18:56)
[2022-09-02] MEDS: PHENobarbital 30 MG TABLET PO SCH (22:17)
[2022-09-02] MEDS: SENNOSIDES/DOCUSATE COMBO (SENNA PLUS) TABLET (UD) PO SCH (22:17)
[2022-09-02] MEDS: ATORVASTATIN CA 10 MG TABLET (FP) PO SCH (22:19)
[2022-09-02] MEDS: LATANOPROST 0.005% OPHTH SOLN 2.5ML BOTTLE OU SCH (22:19)
[2022-09-03] MEDS: POTASSIUM CHLORIDE 20 MEQ in DEXTROSE 5%-WATER - 1,000 ML IV SCH (08:53)
[2022-09-03] MEDS: APIXABAN 5 MG TABLET PO SCH ×2 (09:52→23:19)
[2022-09-03] MEDS: CALCIUM 500MG/VIT-D 200 UNITS COMBO TABLET (FP) PO SCH (09:52)
[2022-09-03] MEDS: levETIRAcetam 500 MG TABLET (FP) PO SCH ×2 (09:53→23:18)
[2022-09-03] MEDS: PANTOPRAZOLE 20 MG TABLET PO SCH (09:53)
[2022-09-03] MEDS: DIGOXIN 0.125 MG TABLET PO SCH (09:53)
[2022-09-03] MEDS: METOPROLOL TARTRATE 25 MG TABLET (FP) PO SCH ×2 (09:53→22:54)
[2022-09-03] MEDS: LORATADINE 10 MG TABLET PO SCH (09:53)
[2022-09-03] MEDS: VALSARTAN 40 MG TABLET PO SCH (09:57)
[2022-09-03] MEDS: LACOSAMIDE 200 MG TABLET PO SCH ×2 (09:57→23:18)
[2022-09-03] MEDS: AMMONIUM LACTATE 12% LOTION 225 GM BOTTLE TP SCH ×2 (09:57→23:19)
[2022-09-03 10:12] LABS: BASO % 0.6 % (0-2.0); EOS % 5.1 % (0-4.5); HEMATOCRIT 33.3 % (35.4-49); HEMOGLOBIN 11.1 GM/dL (11.7-16.9); LYMPH % 21.9 % (8-40); MCH 32.2 pg (25.7-33.7); MCHC 33.2 g/dl (32.0-35.9); MEAN PLT VOLUME 8.7 fl (7.5-11.1); NEUT % 62.4 % (42.8-82.8); PLATELET COUNT 166 10^3/uL (134-434); RBC 3.44 M/mm3 (4.00-5.60); RDW 14.2 % (11.9-15.9); WHITE BLOOD COUNT 6.1 K/mm3 (4.0-10.0)
[2022-09-03 10:33] LABS: CALCIUM 8.3 mg/dL (8.5-10.1)
[2022-09-03 10:34] LABS: ALBUMIN 2.6 g/dl (3.4-5.0); BLOOD UREA NITROGEN 25.6 mg/dL (7-18); MAGNESIUM 2.2 mg/dL (1.8-2.4)
[2022-09-03 10:35] LABS: CREATININE 0.6 mg/dL (0.55-1.3)
[2022-09-03 10:36] LABS: BILIRUBIN,TOTAL 0.4 mg/dL (0.2-1); TOT PROT 6.1 g/dl (6.4-8.2)
[2022-09-03] MEDS ORDERED: FUROSEMIDE 40 MG/4 ML INJECTABLE VIAL IVPUSH ONE (12:45)
[2022-09-03 20:31] LABS: N-TERMINAL BNP 440.5 pg/ml (5-450)
[2022-09-03] MEDS: PHENobarbital 30 MG TABLET PO SCH (23:17)
[2022-09-03] MEDS: SENNOSIDES/DOCUSATE COMBO (SENNA PLUS) TABLET (UD) PO SCH (23:18)
[2022-09-03] MEDS: LATANOPROST 0.005% OPHTH SOLN 2.5ML BOTTLE OU SCH (23:19)
[2022-09-03] MEDS: ATORVASTATIN CA 10 MG TABLET (FP) PO SCH (23:19)
[2022-09-04] MEDS: VALSARTAN 40 MG TABLET PO SCH (09:28)
[2022-09-04] MEDS: PANTOPRAZOLE 20 MG TABLET PO SCH (09:32)
[2022-09-04] MEDS: CALCIUM 500MG/VIT-D 200 UNITS COMBO TABLET (FP) PO SCH (09:32)
[2022-09-04] MEDS: APIXABAN 5 MG TABLET PO SCH ×2 (09:32→22:06)
[2022-09-04] MEDS: levETIRAcetam 500 MG TABLET (FP) PO SCH ×2 (09:32→22:05)
[2022-09-04] MEDS: LORATADINE 10 MG TABLET PO SCH (09:32)
[2022-09-04] MEDS: AMMONIUM LACTATE 12% LOTION 225 GM BOTTLE TP SCH ×2 (09:33→22:06)
[2022-09-04] MEDS: LACOSAMIDE 200 MG TABLET PO SCH ×2 (09:33→22:07)
[2022-09-04 10:16] LABS: HEMATOCRIT 36.1 % (35.4-49); HEMOGLOBIN 11.8 GM/dL (11.7-16.9); MCHC 32.7 g/dl (32.0-35.9); MEAN CELL VOLUME 97.9 fl (80-96); MEAN PLT VOLUME 8.9 fl (7.5-11.1); PLATELET COUNT 156 10^3/uL (134-434); RBC 3.69 M/mm3 (4.00-5.60); RDW 14.3 % (11.9-15.9); WHITE BLOOD COUNT 8.1 K/mm3 (4.0-10.0)
[2022-09-04 10:55] LABS: ANISOCYTOSIS 0; HELMET CELLS 0; HOWELL-JOLLY BODIES 0; MACROCYTOSIS 0; OVALOCYTE 0; ROULEAU 0; SICKELED CELLS 0; TARGET CELLS 0; TEAR DROP CELLS 0; TOXIC GRANULATION 0
[2022-09-04 11:07] LABS: BLOOD UREA NITROGEN 23.3 mg/dL (7-18); CALCIUM 8.6 mg/dL (8.5-10.1)
[2022-09-04 11:08] LABS: ALBUMIN 2.7 g/dl (3.4-5.0); MAGNESIUM 2.1 mg/dL (1.8-2.4)
[2022-09-04] MEDS: METOPROLOL TARTRATE 25 MG TABLET (FP) PO SCH ×2 (11:08→22:06)
[2022-09-04 11:11] LABS: CREATININE 0.6 mg/dL (0.55-1.3)
[2022-09-04 11:12] LABS: BILIRUBIN,TOTAL 0.6 mg/dL (0.2-1); TOT PROT 6.5 g/dl (6.4-8.2)
[2022-09-04] MEDS: SENNOSIDES/DOCUSATE COMBO (SENNA PLUS) TABLET (UD) PO SCH (22:04)
[2022-09-04] MEDS: PHENobarbital 30 MG TABLET PO SCH (22:04)
[2022-09-04] MEDS: ATORVASTATIN CA 10 MG TABLET (FP) PO SCH (22:05)
[2022-09-04] MEDS: LATANOPROST 0.005% OPHTH SOLN 2.5ML BOTTLE OU SCH (22:07)
[2022-09-05] MEDS: VALSARTAN 40 MG TABLET PO SCH (09:21)
[2022-09-05] MEDS: CALCIUM 500MG/VIT-D 200 UNITS COMBO TABLET (FP) PO SCH (09:21)
[2022-09-05] MEDS: LACOSAMIDE 200 MG TABLET PO SCH ×2 (09:22→22:47)
[2022-09-05] MEDS: PANTOPRAZOLE 20 MG TABLET PO SCH (09:22)
[2022-09-05] MEDS: METOPROLOL TARTRATE 25 MG TABLET (FP) PO SCH ×2 (09:22→23:00)
[2022-09-05] MEDS: APIXABAN 5 MG TABLET PO SCH ×2 (09:22→22:44)
[2022-09-05] MEDS: levETIRAcetam 500 MG TABLET (FP) PO SCH ×2 (09:22→22:44)
[2022-09-05] MEDS: AMMONIUM LACTATE 12% LOTION 225 GM BOTTLE TP SCH ×2 (09:22→22:45)
[2022-09-05] MEDS: LORATADINE 10 MG TABLET PO SCH (09:22)
[2022-09-05 10:35] LABS: BASO % 0.7 % (0-2.0); EOS % 4.7 % (0-4.5); HEMATOCRIT 37.1 % (35.4-49); HEMOGLOBIN 12.1 GM/dL (11.7-16.9); LYMPH % 20.2 % (8-40); MCH 31.5 pg (25.7-33.7); MCHC 32.6 g/dl (32.0-35.9); MEAN CELL VOLUME 96.8 fl (80-96); MEAN PLT VOLUME 9.5 fl (7.5-11.1); MONO % 11.2 % (3.8-10.2); NEUT % 63.2 % (42.8-82.8); PLATELET COUNT 181 10^3/uL (134-434); RBC 3.83 M/mm3 (4.00-5.60); RDW 14.2 % (11.9-15.9); WHITE BLOOD COUNT 6.7 K/mm3 (4.0-10.0)
[2022-09-05 11:19] LABS: CALCIUM 8.6 mg/dL (8.5-10.1)
[2022-09-05 11:20] LABS: ALBUMIN 2.8 g/dl (3.4-5.0); BLOOD UREA NITROGEN 25.3 mg/dL (7-18); MAGNESIUM 2.2 mg/dL (1.8-2.4)
[2022-09-05 11:22] LABS: CREATININE 0.6 mg/dL (0.55-1.3)
[2022-09-05 11:24] LABS: BILIRUBIN,TOTAL 0.4 mg/dL (0.2-1); TOT PROT 6.6 g/dl (6.4-8.2)
[2022-09-05] MEDS ORDERED: FUROSEMIDE 20 MG TABLET (FP) PO SCH (12:00)
[2022-09-05] MEDS: SENNOSIDES/DOCUSATE COMBO (SENNA PLUS) TABLET (UD) PO SCH (22:44)
[2022-09-05] MEDS: PHENobarbital 30 MG TABLET PO SCH (22:44)
[2022-09-05] MEDS: ATORVASTATIN CA 10 MG TABLET (FP) PO SCH (22:45)
[2022-09-05] MEDS: LATANOPROST 0.005% OPHTH SOLN 2.5ML BOTTLE OU SCH (22:48)
[2022-09-06] MEDS: METOPROLOL TARTRATE 25 MG TABLET (FP) PO SCH ×3 (03:04→23:02)
[2022-09-06] MEDS ORDERED: FUROSEMIDE 20 MG TABLET (FP) PO ONE (10:32)
[2022-09-06] MEDS: APIXABAN 5 MG TABLET PO SCH ×2 (12:00→23:02)
[2022-09-06] MEDS: LORATADINE 10 MG TABLET PO SCH (12:00)
[2022-09-06] MEDS: VALSARTAN 40 MG TABLET PO SCH (12:00)
[2022-09-06] MEDS: PANTOPRAZOLE 20 MG TABLET PO SCH (12:00)
[2022-09-06] MEDS: levETIRAcetam 500 MG TABLET (FP) PO SCH ×2 (12:00→23:03)
[2022-09-06] MEDS: AMMONIUM LACTATE 12% LOTION 225 GM BOTTLE TP SCH ×2 (12:00→23:03)
[2022-09-06] MEDS: CALCIUM 500MG/VIT-D 200 UNITS COMBO TABLET (FP) PO SCH (12:00)
[2022-09-06] MEDS: LACOSAMIDE 200 MG TABLET PO SCH ×2 (12:01→23:04)
[2022-09-06 13:57] LABS: PH,URINE 6.5 (5.0-8.0); URINE APPEARANCE CLEAR; URINE BILIRUBIN NEGATIVE (NEGATIVE); URINE COLOR YELLOW; URINE GLUCOSE (UA) NEGATIVE (NEGATIVE); URINE KETONE NEGATIVE (NEGATIVE); URINE LEUK ESTERASE NEGATIVE (NEGATIVE); URINE NITRITE NEGATIVE (NEGATIVE); URINE PROTEIN NEGATIVE (NEGATIVE)
[2022-09-06 14:33] LABS: BASO % 0.7 % (0-2.0); EOS % 5.6 % (0-4.5); HEMATOCRIT 37.2 % (35.4-49); LYMPH % 21.4 % (8-40); MCH 31.3 pg (25.7-33.7); MCHC 32.3 g/dl (32.0-35.9); MEAN CELL VOLUME 97.1 fl (80-96); MEAN PLT VOLUME 9.5 fl (7.5-11.1); NEUT % 59.3 % (42.8-82.8); PLATELET COUNT 179 10^3/uL (134-434); RBC 3.83 M/mm3 (4.00-5.60); RDW 13.8 % (11.9-15.9); WHITE BLOOD COUNT 5.6 K/mm3 (4.0-10.0)
[2022-09-06 15:51] LABS: ALBUMIN 2.8 g/dl (3.4-5.0); BLOOD UREA NITROGEN 23.8 mg/dL (7-18); CALCIUM 8.7 mg/dL (8.5-10.1)
[2022-09-06 15:52] LABS: MAGNESIUM 2.2 mg/dL (1.8-2.4)
[2022-09-06 15:54] LABS: CREATININE 0.6 mg/dL (0.55-1.3)
[2022-09-06 15:56] LABS: BILIRUBIN,TOTAL 0.3 mg/dL (0.2-1); TOT PROT 6.8 g/dl (6.4-8.2)
[2022-09-06] MEDS: SENNOSIDES/DOCUSATE COMBO (SENNA PLUS) TABLET (UD) PO SCH (23:02)
[2022-09-06] MEDS: ATORVASTATIN CA 10 MG TABLET (FP) PO SCH (23:03)
[2022-09-06] MEDS: PHENobarbital 30 MG TABLET PO SCH (23:04)
[2022-09-06] MEDS: LATANOPROST 0.005% OPHTH SOLN 2.5ML BOTTLE OU SCH (23:05)
[2022-09-07 05:28] VITALS: RESP 20
[2022-09-07] MEDS: VALSARTAN 40 MG TABLET PO SCH (10:13)
[2022-09-07] MEDS: FUROSEMIDE 20 MG TABLET (FP) PO SCH (10:14)
[2022-09-07] MEDS: METOPROLOL TARTRATE 25 MG TABLET (FP) PO SCH (10:14)
[2022-09-07] MEDS: CALCIUM 500MG/VIT-D 200 UNITS COMBO TABLET (FP) PO SCH (10:22)
[2022-09-07] MEDS: levETIRAcetam 500 MG TABLET (FP) PO SCH (10:22)
[2022-09-07] MEDS: PANTOPRAZOLE 20 MG TABLET PO SCH (10:22)
[2022-09-07] MEDS: APIXABAN 5 MG TABLET PO SCH (10:22)
[2022-09-07] MEDS: LACOSAMIDE 200 MG TABLET PO SCH (10:22)
[2022-09-07] MEDS: LORATADINE 10 MG TABLET PO SCH (10:22)
[2022-09-07] MEDS: AMMONIUM LACTATE 12% LOTION 225 GM BOTTLE TP SCH (10:25)
[2022-09-07 21:32] VITALS: TEMP 98.7
[2022-09-08] MEDS: SENNOSIDES/DOCUSATE COMBO (SENNA PLUS) TABLET (UD) PO SCH
[2022-09-08] MEDS: PHENobarbital 30 MG TABLET PO SCH
[2022-09-08] MEDS: AMMONIUM LACTATE 12% LOTION 225 GM BOTTLE TP SCH ×2 (00:01→09:57)
[2022-09-08] MEDS: levETIRAcetam 500 MG TABLET (FP) PO SCH ×2 (00:01→09:57)
[2022-09-08] MEDS: ATORVASTATIN CA 10 MG TABLET (FP) PO SCH (00:01)
[2022-09-08] MEDS: APIXABAN 5 MG TABLET PO SCH ×2 (00:01→09:57)
[2022-09-08] MEDS: METOPROLOL TARTRATE 25 MG TABLET (FP) PO SCH ×2 (00:04→09:57)
[2022-09-08] MEDS: LATANOPROST 0.005% OPHTH SOLN 2.5ML BOTTLE OU SCH (00:10)
[2022-09-08] MEDS: LACOSAMIDE 200 MG TABLET PO SCH ×2 (00:10→10:02)
[2022-09-08] MEDS: FUROSEMIDE 20 MG TABLET (FP) PO SCH (09:57)
[2022-09-08] MEDS: LORATADINE 10 MG TABLET PO SCH (09:57)
[2022-09-08] MEDS: CALCIUM 500MG/VIT-D 200 UNITS COMBO TABLET (FP) PO SCH (09:57)
[2022-09-08] MEDS: PANTOPRAZOLE 20 MG TABLET PO SCH (09:57)
[2022-09-08] MEDS: VALSARTAN 40 MG TABLET PO SCH (09:57)
[2022-09-08 10:05] VITALS: BP 113/75; PULSE 60
[2022-09-08 10:25] LABS: BASO % 0.7 % (0-2.0); EOS % 5.2 % (0-4.5); HEMATOCRIT 37.9 % (35.4-49); HEMOGLOBIN 12.5 GM/dL (11.7-16.9); LYMPH % 24.4 % (8-40); MCH 31.7 pg (25.7-33.7); MCHC 32.9 g/dl (32.0-35.9); MEAN CELL VOLUME 96.3 fl (80-96); MEAN PLT VOLUME 9.9 fl (7.5-11.1); MONO % 13.3 % (3.8-10.2); NEUT % 56.4 % (42.8-82.8); PLATELET COUNT 168 10^3/uL (134-434); RBC 3.94 M/mm3 (4.00-5.60); WHITE BLOOD COUNT 4.6 K/mm3 (4.0-10.0)
[2022-09-08 11:08] LABS: CALCIUM 8.7 mg/dL (8.5-10.1)
[2022-09-08 11:09] LABS: ALBUMIN 2.9 g/dl (3.4-5.0); BLOOD UREA NITROGEN 17.7 mg/dL (7-18); MAGNESIUM 2.1 mg/dL (1.8-2.4)
[2022-09-08 11:11] LABS: CREATININE 0.6 mg/dL (0.55-1.3)
[2022-09-08 11:13] LABS: BILIRUBIN,TOTAL 0.6 mg/dL (0.2-1)
== END 2022-09-08 14:29 | DRG 720 ==
LOC: JER 16:02 → JERBED 18:18 → J8W 22:46
PROVIDERS: ADMIT Internal Medicine; ATTEND Nurse Practitioner Acute Care
DX: A41.89 Other specified sepsis (principal); J18.9 Pneumonia, unspecified organism; G93.41 Metabolic encephalopathy; E87.0 Hyperosmolality and hypernatremia; I25.10 Atherosclerotic heart disease of native coronary artery without angina pectoris; J44.9 Chronic obstructive pulmonary disease, unspecified; G30.9 Alzheimer's disease, unspecified; F02.80 Dementia in other diseases classified elsewhere, unspecified severity, without behavioral disturbance, psychotic disturbance, mood disturbance, and anxiety; F20.9 Schizophrenia, unspecified; F31.9 Bipolar disorder, unspecified; K21.9 Gastro-esophageal reflux disease without esophagitis; I10 Essential (primary) hypertension; E78.5 Hyperlipidemia, unspecified; G40.909 Epilepsy, unspecified, not intractable, without status epilepticus; I95.9 Hypotension, unspecified; R41.82 Altered mental status, unspecified; I48.91 Unspecified atrial fibrillation; N39.0 Urinary tract infection, site not specified; B96.20 Unspecified Escherichia coli [E. coli] as the cause of diseases classified elsewhere; B96.5 Pseudomonas (aeruginosa) (mallei) (pseudomallei) as the cause of diseases classified elsewhere; I11.0 Hypertensive heart disease with heart failure; I50.32 Chronic diastolic (congestive) heart failure; E86.0 Dehydration; J98.11 Atelectasis; Z95.0 Presence of cardiac pacemaker
CPT/HCPCS: 0241U-QW; 36415; 70450-TC; 71045-TC-FY; 80048; 80053; 80061; 80162; 81003; 82550; 82553; 82803; 82962; 83036; 83605; 83735; 83880; 84100; 84443; 84484; 85025; 85610; 85730; 86850; 86900; 86901; 87040; 87086; 87186; 87899; 93005; 93010; 93306-TC; 94640; 99285-25; C9803-CS; U0003; U0005